=== PATIENT | male | born 1930 | race Caucasian/White ===

== ENCOUNTER 2020-08-12 18:11 | Inpatient (IN) | payer MEDICARE ==
[~2020-08-12] VITALS: Ht 165.1 cm; Wt 50.3 kg
--- NOTE | 2020-08-12 18:20 | NUR ---
LEEA, A/O X2, REFUSED TO ANSWER QUESTIONS. PER RUG SETTER VELVET NOTED WITH SYNCOPAL EPISODE. VSS AT THIS TIME, MD AT BEDSIDE, WILL CONTINUE TO MONITOR.
--- NOTE | 2020-08-12 18:45 | NUR ---
BLOOD DRAWN AND SENT TO LAB, IV ACCESS ON LFA #18, WILL CONTINUE TO MONITOR.
[2020-08-12 18:50] LABS: BASOPHILS # (AUTO) 0.1 /CMM (0.0-0.2); BASOPHILS % (AUTO) 1.2 % (0.0-2.0); EOSINOPHILS % (AUTO) 0.7 % (0.0-6.0); HEMATOCRIT 32 % (39-51); HEMOGLOBIN 10.4 g/dL (13.5-17.5); LYMPHOCYTES # (AUTO) 1.2 /CMM (0.8-4.8); LYMPHOCYTES % (AUTO) 22.7 % (20.0-44.0); MEAN CORPUSCULAR HGB CONC 33 g/dl (31.0-36.0); MEAN CORPUSCULAR VOLUME 97 fL (80-96); MONOCYTES # (AUTO) 0.4 /CMM (0.1-1.30); MONOCYTES % (AUTO) 7.3 % (2.0-12.0); NEUTROPHILS # (AUTO) 3.7 /CMM (1.8-8.9); NEUTROPHILS % (AUTO) 68.1 % (43.0-81.0); PLATELET COUNT (AUTO) 110 /CMM (150-450); RED BLOOD CELL COUNT(AUTO) 3.27 MIL/uL (4.5-6.0); WHITE BLOOD COUNT (AUTO) 5.4 K/uL (4.3-11.0)
--- NOTE | 2020-08-12 18:56 | NUR ---
- cell # [phone] Medicare # [id number] A&B
--- NOTE | 2020-08-12 18:57 | NUR ---
REFUSED XRAY, EXPLAINED BENEFITS AND RISKS BUT PATIENT MD VIKI MADE AWARE.
[2020-08-12] MEDS ORDERED: OLANZAPINE 10 MG VIAL IM ONE ×4 (18:59→21:00)
[2020-08-12 19:04] LABS: CALCIUM, SERUM 8.7 mg/dL (8.5-10.1); CARBON DIOXIDE 22 mmol/L (21-32); CHLORIDE 108 mmol/L (98-107); CREATININE 1.4 mg/dL (0.6-1.3); GLUCOSE 120 mg/dL (74-106); POTASSIUM 4.4 mmol/L (3.5-5.1); SODIUM SERUM 145 mmol/L (136-145); UREA NITROGEN, BLOOD 26 mg/dL (7-18)
--- NOTE | 2020-08-12 19:05 | NUR ---
ALL DUE MEDS GIVEN ORDERED.
[2020-08-12 19:09] LABS: ALANINE AMINOTRANSFERASE 84 U/L (12-78); ALBUMIN 3.2 g/dL (3.4-5.0); ALKALINE PHOSPHATASE 78 U/L (46-116); ASPARTATE AMINOTRANSFERASE 64 U/L (15-37); BILIRUBIN,DIRECT 0.2 mg/dL (0.0-0.2); TOTAL PROTEIN, SERUM 5.7 g/dL (6.4-8.2)
[2020-08-12] MEDS ORDERED: IV NS 0.9% 500 ML BAG IV ONE (19:30)
--- NOTE | 2020-08-12 20:02 | NUR ---
EMT AT BEDSIDE FOR EKG, PT WAS REFUSING EARLIER.
--- NOTE | 2020-08-12 20:12 | NUR ---
SPOKE WITH REGARDING PLAN OF CARE. STATED HE DOES HAVE DEMENTIA AND TENDS TO REFUSE SERVICE. ALSO STATED SHE WILL CALL TOMORROW FOR A BETTER UPDATE REGARDING PLAN OF CARE.
[2020-08-12] MEDS ORDERED: ONDANSETRON HCL/PF 4 MG/2 ML VIAL IVP PRN (21:30)
[2020-08-12] MEDS ORDERED: Z GUARD REMEDY 2 OZ OINT TP PRN (21:30)
[2020-08-12] MEDS ORDERED: HYDROCODONE/APAP 5/325MG TABLET PO PRN (21:30)
[2020-08-12] MEDS ORDERED: ACETAMINOPHEN 325 MG TABLET PO PRN (21:30)
[2020-08-12] MEDS ORDERED: MAG HYDROX/AL HYDROX/SIMETH 30 ML UDC PO PRN (21:30)
[2020-08-12] MEDS ORDERED: ZOLPIDEM TARTRATE 5 MG TABLET PO PRN (21:30)
[2020-08-12] MEDS ORDERED: IV NS 0.9% 1,000 ML IV ONE (21:30)
[2020-08-12] MEDS ORDERED: MAGNESIUM HYDROXIDE 30 ML UDC PO PRN (21:30)
--- NOTE | 2020-08-12 21:32 | NUR ---
REPORT GIVEN TO KEITH ALLEN FOR LYNDON
--- NOTE | 2020-08-12 21:49 | NUR ---
CALLED REGARDING HOME MEDICATIONS, DID NOT ANSWER.
--- NOTE | 2020-08-12 21:55 | NUR ---
CALLED , NO ANSWER.
[2020-08-12] MEDS ORDERED: ATOR10TA PO (22:12)
[2020-08-12] MEDS ORDERED: ASPI-1169 PO (22:12)
[2020-08-12] MEDS ORDERED: METF-440 PO (22:12)
--- NOTE | 2020-08-12 22:12 | NUR ---
SPOKE TO , UPDATED MEDICATIONS.
--- NOTE | 2020-08-12 22:30 | NUR ---
VEHICLE BODY MAKERPASTORAL COUNSELOR NOTE: RECEIVED PATIENT FROM ER VIA GURNEY ON STABLE CONDITION, A/OX2- CC OF SYNCOPE AND DIZZINESS WITH LFA IV LINE #18 ON 0.9 NSS @100ML /HR INFUSING WELL, PATIENT APPEARS CALM AND VERBALLY RESPONSIVE TO QUESTION, ON ROOM AIR NO SOB WAS OBSERVED, SKIN ASSESMENT DONE, INVENTORY DONE, BED WAS PLACE IN LOW POSITION, CALL LIGHTS WITHIN REACH, ORIENTED TO ROOM AND ADVISE TO USE THE CALL LIGHTS WHEN NEEDED ASSISTANCE, PATIENT ON TELE MONITORING WITH READING OF A FIB WITH HR-76-77, ALL NEEDS MET, KEPT CLEAN AND DRY, WILL CONTINUE TO MONITOR.
[2020-08-12 23:37] VITALS: BP 133/71
[2020-08-13 00:26] VITALS: BP 155/82
--- NOTE | 2020-08-13 00:40 | NUR ---
RT NOTE PT REFUSED EKG AT THIS TIME. NO DISTRESS NOTED. RN AWARE.
--- NOTE | 2020-08-13 00:49 | NUR ---
RN NOTES: PATIENT READING WAS SHIFITNG FROM AFIB TO SINUS ARRHYTHMIA, ORDER EKG BUT PATIENT REFUSED,PATIENT APPEARS CALM WILL CONTINUE TO MONITOR AND TRY AGAIN IN THE AM
[2020-08-13 04:58] VITALS: BP 154/78
[2020-08-13 05:58] LABS: BASOPHILS % (AUTO) 0.4 % (0.0-2.0); EOSINOPHILS % (AUTO) 0.6 % (0.0-6.0); HEMATOCRIT 33 % (39-51); HEMOGLOBIN 10.9 g/dL (13.5-17.5); LYMPHOCYTES # (AUTO) 1.5 /CMM (0.8-4.8); LYMPHOCYTES % (AUTO) 18.2 % (20.0-44.0); MEAN CORPUSCULAR HGB CONC 33 g/dl (31.0-36.0); MEAN CORPUSCULAR VOLUME 97 fL (80-96); MONOCYTES # (AUTO) 0.5 /CMM (0.1-1.30); MONOCYTES % (AUTO) 6.7 % (2.0-12.0); NEUTROPHILS % (AUTO) 74.1 % (43.0-81.0); PLATELET COUNT (AUTO) 141 /CMM (150-450); WHITE BLOOD COUNT (AUTO) 8.1 K/uL (4.3-11.0)
[2020-08-13 06:33] LABS: CALCIUM, SERUM 8.4 mg/dL (8.5-10.1); CREATININE 1.2 mg/dL (0.6-1.3); MAGNESIUM 1.3 mg/dL (1.8-2.4); PHOSPHORUS 3.3 mg/dL (2.5-4.9); POTASSIUM 4.1 mmol/L (3.5-5.1)
--- NOTE | 2020-08-13 06:36 | NUR ---
ASSOCIATE BROKER CLOSING NOTES: RECEIVED PATIENT SLEEP IN BED COMFORTABLY, BED IN LOW POSITION, CALL LIGHTS WITHIN REACH, NO COMPLAIN OF PAIN AND DISCOMFORT AT THIS TIME WITH IV LINE ON KB #18 WITH 100ML/HR ONE TIME INFUSING WELL.PATIENT ON CARDIAC MONITORING READING FROM JUNCTIONAL RHYTHM TO A FIB TO SINUS ARRHYTHMIA MOST RECENT TELE READING IS JUNCTIONAL ARRYHTMIA HR -[address] BECKETT WITH ORDER TO MONITOR. PATIENT IS FALL RISK, ON CONTINUOUS MONITORING, ALL NEEDS MET, KEPT CLEAN AND DRY, ENDORSE TO INCOMING SHIFT.
--- NOTE | 2020-08-13 07:53 | NUR ---
TELE/RN OPENING NOTES: RECEIVED PATIENT IN BED ALERT AND ORIENTED X1-2. ABLE TO MAKE NEEDS KNOWN. ON TELE MONITOR. NO DISTRESS NOTED AT THIS TIME. ON ROOM AIR. IV LINE ON KB #18 WITH 100ML/HR ONE TIME INFUSING WELL. PATIENT ON CARDIAC MONITORING READING FROM JUNCTIONAL RHYTHM TO A FIB TO SINUS ARRHYTHMIA MOST RECENT EKG RESULT AT 5AM IS JUNCTIONAL ARRYHTMIA HR -54 RESULT GIVEN BY PREVIOUS NURSE TO DR BECKETT WITH ORDER TO CONTINUE TO MONITOR. PATIENT IS A FALL RISK, ON CONTINUOUS MONITORING. SAFETY PRECAUTIONS IN PLACE. BED LOCKED ON LOWEST POSITION, SIDE RAILS UPX3, BED ALARM ON AND CALL LIGHT WITHIN REACH. WILL CONTINUE TO MONITOR PATIENT.
[2020-08-13] MEDS ORDERED: IV NS 0.9% 1,000 ML IV PRN (09:00)
[2020-08-13] MEDS: Magnesium 1GM/D5W 100ML PREMIX 100 ML IV SCH ×2 (09:35→11:02)
[2020-08-13 09:44] LABS: THYROID STIMULATING HORMONE 0.91 uIU/mL (0.358-3.74)
--- NOTE | 2020-08-13 15:30 | NUR ---
PATIENT IS VERY AGITATED, CONFUSED. PULLED OUT HIS IV, TOOK OFF HIS CLOTHING AND HAD BM ALL OVER THE BED AND THE FLOOR. SERGEANT OF CORRECTIONS SOFIA SHOWERED PATIENT AND CLEANED THE BED AND FLOOR. ATTEMPTED TO ESTABLISH AN IV ACCESS X3 BUT UNABLE AND PATIENT REFUSED TO DO IT. WE WILL TRY AGAIN. REPORTED INCIDENT TO DR. ROD AND CALLED AND NOTIFIED THE PATIENT'S ALLEN. WILL CONTINUE TO MONITOR.
[2020-08-13] MEDS: ENSURE ENLIVE CHOC 237 ML CAN PO SCH (16:04)
--- NOTE | 2020-08-13 18:46 | NUR ---
TELE/RN NOTES REPORTED TO DR. ROD THAT PATIENT HAS A HOME MEDS OF METFORMIN 500MG PO BID AND BLOOD SUGAR TESTING TWICE A DAY. DR. MEDLEY HELD METFORMIN THIS AM, BUT PER DR. ROD, OKAY TO START METFORMIN IF CREATININE IS LESS THAN 1.3. RECENT CREATININE IS 1.2. OKAY TO START METFORMIN PO.
[2020-08-13] MEDS: BLOOD SUGAR DIAGNOSTIC 1 EACH STRIP IN SCH ×2 (19:41→22:00)
--- NOTE | 2020-08-13 19:53 | NUR ---
COFFEE WEIGHER OPENING NOTE: RECEIVED PATIENT SLEEP IN BED COMFORTABLY, AROUSABLE TO STIMULI, NO COMPLAIN OF PAIN AND DISCOMFORT AT THIS TIME, BED IN LOW POSITION, CALL LIGHTS WITHIN REACH, PATIENT IS A/OX1 HAS A COMBATIVE EPISODE, WITH 1:1 SITTER, ON MONITORING FOR RISK FOR FALL DUE TO EPISODE OF SYNCOPE, ON TELE MONITORING WITH READING OF NORMAL SINUS PAC HR-62, ALL NEEDS MET, ROHITH CONTINUE TO MONITOR.
--- NOTE | 2020-08-13 19:56 | NUR ---
TELE/RN CLOSING NOTES PATIENT IN BED, ASLEEP BUT EASILY AROUSABLE, ORIENTED X1. NO DISTRESS NOTED.ON ROOM AIR. CURRENTLY HAVE A SITTER DUE TO AGITATION EPISODES. SAFETY PRECAUTIONS IN PLACE. BED ON LOWEST LOCKED POSITION, SIDE RAILS UP X2, CALL LIGHT WITHIN REACH. WILL ENDORSE PATIENT FOR CONTINUITY OF CARE.
--- NOTE | 2020-08-13 20:10 | NUR ---
RN NOTE: PATIENT WAS AGITATED, COMBATIVE AND WALKING ALONG THE HALLWAY, REDIRECTION WAS DONE SEVERAL TIME DUE TO AGGRESSIVE BEHAVIOR, PATIENT WAS TRANSFERRRED TO 311-1 DUE TO COMPLAIN FROM PT. 310-1 , V/S ARE NOT TAKEN DUE TO REFUSAL EXPLAIN RISK AND BENEFITS BUT PATIENT REFUSED.
--- NOTE | 2020-08-13 23:30 | NUR ---
RN NOTES: PATIENT IS UNABLE TO SLEEP, AGITATED, BECOMNG COMBATIVE INSPITE OF HAVING 1:1 SITTER AND ROOM CHANGE, AMBIEN GIVEN 5MG ,
[2020-08-14 04:00] VITALS: BP_SYST 101; BP_SYST 103; BP_DIAS 50; BP_DIAS 56
[2020-08-14 05:46] VITALS: BP 101/50
--- NOTE | 2020-08-14 06:25 | NUR ---
FISH HATCHERY INSPECTOR CLOSING NOTES PATIENT IN BED, ASLEEP, EASILY AWAKEN BY VERBAL AND TACTILE STIMULI. NO DISTRESS NOTED. ON ROOM AIR. CURRENTLY HAVE A SITTER DUE TO AGITATION EPISODES. ON TELE MONITOR, SINUS RHYTHM, HR ON 60'S. SAFETY PRECAUTIONS IN PLACE. BED ON LOWEST LOCKED POSITION, SIDE RAILS UP X2, CALL LIGHT WITHIN REACH. REFUSED IV REINSERTION, AWARE. ENDORSED PATIENT TO MORNING NURSE FOR CONTINUITY OF CARE.
[2020-08-14 06:27] LABS: BASOPHILS % (AUTO) 0.5 % (0.0-2.0); EOSINOPHILS % (AUTO) 1.1 % (0.0-6.0); HEMATOCRIT 31 % (39-51); HEMOGLOBIN 10.3 g/dL (13.5-17.5); LYMPHOCYTES # (AUTO) 1.9 /CMM (0.8-4.8); MEAN CORPUSCULAR HGB CONC 33 g/dl (31.0-36.0); MEAN CORPUSCULAR VOLUME 97 fL (80-96); MONOCYTES # (AUTO) 0.5 /CMM (0.1-1.30); MONOCYTES % (AUTO) 8.2 % (2.0-12.0); NEUTROPHILS # (AUTO) 3.8 /CMM (1.8-8.9); NEUTROPHILS % (AUTO) 60.2 % (43.0-81.0); PLATELET COUNT (AUTO) 142 /CMM (150-450); RED BLOOD CELL COUNT(AUTO) 3.18 MIL/uL (4.5-6.0); WHITE BLOOD COUNT (AUTO) 6.3 K/uL (4.3-11.0)
[2020-08-14 06:30] LABS: ALBUMIN 3.2 g/dL (3.4-5.0); BILIRUBIN,TOTAL 0.8 mg/dL (0.2-1.0); CALCIUM, SERUM 8.7 mg/dL (8.5-10.1); CREATININE 1.1 mg/dL (0.6-1.3); MAGNESIUM 1.6 mg/dL (1.8-2.4); PHOSPHORUS 3.7 mg/dL (2.5-4.9); POTASSIUM 4.8 mmol/L (3.5-5.1); TOTAL PROTEIN, SERUM 5.7 g/dL (6.4-8.2)
--- NOTE | 2020-08-14 07:32 | NUR ---
RECEIVED PATIENT AWAKE, SITTING ON THE CHAIR. ALERT X1, VERY CONFUSED AND WANTING TO LEAVE ROOM. NO SOB NOTED. NOT SHOWING S/S OF PAIN OR DISCOMFORTS. SITTER AT B[facility]IDE [facility]. RN CALLED AND LEFT A VOICEMAIL TO REPORT PATIENT'S BEHAVIOR. PATIENT STILL REFUSING IV ACCESS AT THIS TIME. WILL NOTIFY MD. WILL CONTINUE TO MONITOR PATIENT.
[2020-08-14] MEDS: Magnesium 1GM/D5W 100ML PREMIX 100 ML IV SCH ×2 (09:00→10:00)
[2020-08-14] MEDS: METFORMIN 500 MG TABLET PO SCH ×2 (09:10→10:02)
[2020-08-14] MEDS: ENSURE ENLIVE CHOC 237 ML CAN PO SCH (09:11)
--- NOTE | 2020-08-14 10:03 | NUR ---
PATIENT REFUSED METFORMIN PO, REFUSED BLOOD SUGAR CHECK AND REFUSED IV ACCESS. NOTIFIED DR. ROD. CALLED AND NOTIFIED ALLEN ON THE PHONE. PATIENT REMAINS UNCOOPERATIVE AND VERBALLY ABUSIVE. PSYCH CONSULT ORDERED. WILL CONTINUE TO MONITOR.
[2020-08-14] MEDS ORDERED: IV NS 0.45% 500 ML IV ONE (12:00)
--- NOTE | 2020-08-14 16:15 | NUR ---
TELE/SHIATSU THERAPIST NOTES PATIENT ALERT AND ORIENTED X1, STABLE ON ROOM AIR. MEDICALLY STABLE AND DR. ROD ORDERED FOR DISCHARGE. CALLED ALLEN AND SPOKE REGARDING DISCHARGE INSTRUCTIONS, UNDERSTOOD. PATIENT GOT PICKED UP BY THE SON KRISTIN. DISCHARGE INSTRUCTIONS ALSO GIVEN TO KRISTIN AND WAS ABLE TO VERBALIZED UNDERSTANDING.. BELONGINGS ACCOUNTED FOR. WHEELED PATIENT DOWN TO THE LOBBY AND LEFT VIA PRIVATE CAR WITH SON KRISTIN.
[2020-08-14] MEDS ORDERED: BLOOD SUGAR DIAGNOSTIC 1 EACH STRIP IN SCH (17:00)
== END 2020-08-14 16:15 | disposition home or self-care (01) | DRG 640 ==
LOC: ER 18:47 → TELE 21:13
PROVIDERS: ADMIT Family Medicine
DX: E86.9 Volume depletion, unspecified (principal); N17.0 Acute kidney failure with tubular necrosis; E44.1 Mild protein-calorie malnutrition; D61.818 Other pancytopenia; E86.0 Dehydration; E11.22 Type 2 diabetes mellitus with diabetic chronic kidney disease; I12.9 Hypertensive chronic kidney disease with stage 1 through stage 4 chronic kidney disease, or unspecified chronic kidney disease; N18.9 Chronic kidney disease, unspecified; D69.6 Thrombocytopenia, unspecified; Z20.822 Contact with and (suspected) exposure to COVID-19; G30.9 Alzheimer's disease, unspecified; F02.80 Dementia in other diseases classified elsewhere, unspecified severity, without behavioral disturbance, psychotic disturbance, mood disturbance, and anxiety; E78.5 Hyperlipidemia, unspecified; E78.00 Pure hypercholesterolemia, unspecified; Z88.1 Allergy status to other antibiotic agents; Z88.0 Allergy status to penicillin; Z88.2 Allergy status to sulfonamides; D63.8 Anemia in other chronic diseases classified elsewhere; R74.01 Elevation of levels of liver transaminase levels; E88.09 Other disorders of plasma-protein metabolism, not elsewhere classified; E11.65 Type 2 diabetes mellitus with hyperglycemia; D53.9 Nutritional anemia, unspecified; E83.42 Hypomagnesemia; E87.2 Acidosis; M48.02 Spinal stenosis, cervical region; R29.6 Repeated falls; E11.40 Type 2 diabetes mellitus with diabetic neuropathy, unspecified; F01.50 Vascular dementia, unspecified severity, without behavioral disturbance, psychotic disturbance, mood disturbance, and anxiety
CPT/HCPCS: 36415; 70450-TC; 71045-TC; 72125-TC; 80048-TC; 80053-TC; 80061-TC; 80076-TC; 82728-TC; 82962-TC; 83540-TC; 83735-TC; 84100-TC; 84439-TC; 84443-TC; 84484-TC; 85025-TC; 85730-TC; 87081-TC; 93307-TC; 93880-TC; 97112-TC; 97116-TC; 97530-TC; C9803; G0378; J3475; J3490; J7030

== ENCOUNTER 2020-11-23 14:09 | Inpatient (IN) | payer MEDICARE ==
[~2020-11-23] VITALS: Ht 160 cm; Wt 44.0 kg
[~2020-11-23 14:09] MED LIST: ASPI-1169 PO; ATOR10TA PO; METF-440 PO
--- NOTE | 2020-11-23 14:10 | NUR ---
BIBRA 40 from home for syncopal episode, HG=689PU/DL HOUSE MOTHER, skin is cold with a rectal temp of 93.7, Resp is even and unlabored with no apparent distress noted. Placed on air sampling and monitoring, hospital gown and warm blanket, Dr Rodas at BS for eval.
[2020-11-23] MEDS ORDERED: IV NS 0.9% 1,000 ML BAG IV ONE (14:30)
--- NOTE | 2020-11-23 14:39 | NUR ---
CXR at BS
--- NOTE | 2020-11-23 14:58 | NUR ---
URINE COLLECTED AND SENT TO THE LAB
[2020-11-23] MEDS ORDERED: MEMA10TA PO (15:03)
[2020-11-23] MEDS ORDERED: DORZ10DR11 EACHEYE (15:03)
[2020-11-23] MEDS ORDERED: LATA2.5D15 EACHEYE (15:03)
[2020-11-23 15:14] LABS: BASOPHILS % (AUTO) 0.5 % (0.0-2.0); EOSINOPHILS % (AUTO) 0.7 % (0.0-6.0); HEMATOCRIT 40 % (39-51); LYMPHOCYTES # (AUTO) 2.4 K/uL (0.8-4.8); LYMPHOCYTES % (AUTO) 39.6 % (20.0-44.0); MEAN CORPUSCULAR HGB CONC 33 g/dl (31.0-36.0); MEAN CORPUSCULAR VOLUME 99 fL (80-96); MONOCYTES # (AUTO) 0.5 K/uL (0.1-1.30); MONOCYTES % (AUTO) 7.5 % (2.0-12.0); NEUTROPHILS # (AUTO) 3.2 K/uL (1.8-8.9); NEUTROPHILS % (AUTO) 51.7 % (43.0-81.0); PLATELET COUNT (AUTO) 170 K/uL (150-450); WHITE BLOOD COUNT (AUTO) 6.2 K/uL (4.3-11.0)
[2020-11-23 15:33] LABS: ALANINE AMINOTRANSFERASE 141 U/L (12-78); ALBUMIN 3.4 g/dL (3.4-5.0); ALKALINE PHOSPHATASE 102 U/L (46-116); ASPARTATE AMINOTRANSFERASE 96 U/L (15-37); BILIRUBIN,DIRECT 0.2 mg/dL (0.0-0.2); BILIRUBIN,TOTAL 0.8 mg/dL (0.2-1.0); CALCIUM, SERUM 8.5 mg/dL (8.5-10.1); CARBON DIOXIDE 28 mmol/L (21-32); CHLORIDE 100 mmol/L (98-107); CREATININE 1.2 mg/dL (0.6-1.3); GLUCOSE 125 mg/dL (74-106); POTASSIUM 4.4 mmol/L (3.5-5.1); SODIUM SERUM 139 mmol/L (136-145); TOTAL PROTEIN, SERUM 6.4 g/dL (6.4-8.2); UREA NITROGEN, BLOOD 21 mg/dL (7-18)
[2020-11-23 15:54] LABS: BILIRUBIN,URINE NEGATIVE (NEGATIVE); COLOR,URINE YELLOW (YELLOW); LEUKOCYTE ESTERASE ,URINE NEGATIVE (NEGATIVE); NITRITE, URINE NEGATIVE (NEGATIVE); PH,URINE 5.5 (5.0-8.0); PROTEIN,URINE NEGATIVE (NEGATIVE); UGLUCOSE NEGATIVE (NEGATIVE); UROBILINOGEN,URINE 0.2 EU/dL (0.2)
[2020-11-23 16:04] LABS: BACTERIA,URINE 1+ /HPF (None Seen); HYALINE CASTS, URINE Few /LPF (None Seen); MUCUS,URINE Few /LPF (None Seen); WBC,URINE 0-2 /HPF (0-3)
[2020-11-23] MEDS ORDERED: MAGNESIUM HYDROXIDE 30 ML UDC PO PRN (16:30)
[2020-11-23] MEDS ORDERED: MAG HYDROX/AL HYDROX/SIMETH 30 ML UDC PO PRN (16:30)
[2020-11-23] MEDS ORDERED: ACETAMINOPHEN 325 MG TABLET PO PRN (16:30)
[2020-11-23] MEDS ORDERED: LEVOFLOXACIN 750 MG /D5W 150ML 150 ML IV ONE ×2 (16:30→16:46)
[2020-11-23] MEDS ORDERED: IV 1/2NS 1000 ML 1,000 ML IV PRN (16:30)
[2020-11-23] MEDS ORDERED: IV NS 0.9% 500 ML BAG IV ONE (16:30)
[2020-11-23] MEDS ORDERED: Z GUARD REMEDY 2 OZ OINT TP PRN (16:30)
[2020-11-23] MEDS ORDERED: ZOLPIDEM TARTRATE 5 MG TABLET PO PRN (16:30)
[2020-11-23] MEDS ORDERED: ONDANSETRON HCL/PF 4 MG/2 ML VIAL IVP PRN (16:30)
[2020-11-23] MEDS ORDERED: HYDROCODONE/APAP 5/325MG TABLET PO PRN (16:30)
--- NOTE | 2020-11-23 18:34 | NUR ---
room 325-1
[2020-11-23] MEDS ORDERED: VANCOMYCIN 0.75 GM in IV D5W 250 ML IV SCH (19:00)
--- NOTE | 2020-11-23 19:29 | NUR ---
Report given nurse Anahi.
[2020-11-23 19:30] VITALS: BP 115/57
--- NOTE | 2020-11-23 19:44 | NUR ---
The patient is transfered to [facility] in stable condition and per ACLS policy.
--- NOTE | 2020-11-23 19:45 | NUR ---
RN OPENING NOTE PATIENT TRANSFERRED VIA ACLS PROTOCOL IN RM 325-1, PATIENT'S BREATHING EVEN AND UNLABORED. PATIENT HAS A RAC 18 G, PATENT AND INTACT. PATIENT HAS STIFFNESS ON HIS UPPER EXTREMITITES. SKIN ISSUES NOTED AND DOCUMENTED. PATIENT IS A/O X 2, VERY FORGETFUL AND MILDLY CONFUSED. PATIENT'S TELE MONITOR READS SR 82 BPM WITH PAC. PATIENT CAME WITH A BEAR HUGGER, PATIENT'S TEMP UPON ADMISSION IS 97.5. WILL MONITOR TEMP. SAFETY MEASURES IN PLACE: BED LOCKED AND IN LOWEST POSITION, CALL LIGHT WITHIN REACH, SIDE RAILS UP, BED ALARM ON. WILL MONITOR PATIENT CLOSELY.
[2020-11-23] MEDS: MEMANTINE HCL 5 MG TABLET PO SCH (20:30)
[2020-11-23] MEDS: TIMOLOL MAL/DORZOLAM HCL OPHTH 10 ML BOTTLE EACHEYE SCH (20:30)
[2020-11-23] MEDS: METFORMIN 500 MG TABLET PO SCH (20:30)
[2020-11-23] MEDS: ENOXAPARIN SODIUM 30 MG/0.3 ML DISP.SYRIN SQ SCH (20:55)
[2020-11-23] MEDS: LATANOPROST EYE DROP 0.005% 2.5 ML BOTTLE EACHEYE SCH (21:41)
[2020-11-23] MEDS: ATORVASTATIN 10 MG TABLET PO SCH (21:41)
--- NOTE | 2020-11-23 22:33 | NUR ---
RN NOTE PATIENT COMPLAINING OF 10/10 ARM PAIN ON RIGHT AND LEFT, NORCO GIVEN
[2020-11-24] VITALS: BP 160/72
[2020-11-24 04:00] VITALS: BP 122/78
[2020-11-24 06:40] LABS: BASOPHILS % (AUTO) 0.5 % (0.0-2.0); EOSINOPHILS % (AUTO) 0.2 % (0.0-6.0); HEMATOCRIT 35 % (39-51); HEMOGLOBIN 11.8 g/dL (13.5-17.5); LYMPHOCYTES # (AUTO) 1.3 K/uL (0.8-4.8); LYMPHOCYTES % (AUTO) 24.3 % (20.0-44.0); MEAN CORPUSCULAR HGB CONC 34 g/dl (31.0-36.0); MEAN CORPUSCULAR VOLUME 97 fL (80-96); MONOCYTES # (AUTO) 0.3 K/uL (0.1-1.30); NEUTROPHILS # (AUTO) 3.6 K/uL (1.8-8.9); PLATELET COUNT (AUTO) 154 K/uL (150-450); RED BLOOD CELL COUNT(AUTO) 3.63 MIL/uL (4.5-6.0); WHITE BLOOD COUNT (AUTO) 5.2 K/uL (4.3-11.0)
[2020-11-24 07:00] LABS: CALCIUM, SERUM 8.2 mg/dL (8.5-10.1); MAGNESIUM 1.5 mg/dL (1.8-2.4); PHOSPHORUS 2.8 mg/dL (2.5-4.9); POTASSIUM 4.6 mmol/L (3.5-5.1)
[2020-11-24 07:14] LABS: THYROID STIMULATING HORMONE 3.205 uIU/mL (0.358-3.74)
--- NOTE | 2020-11-24 07:15 | NUR ---
RN CLOSING NOTE PATIENT IN BED, EYES CLOSED, EASILY AROUSED. LAB CALLED IN CRITICAL LAB ON 3.2 LACTIC ACID. MD GALAN AWARE. NO NEW ORDERS. IV ACCESS PATENT AND INTACT WITH ONGOING IVF. SAFETY MEASURES MAINTAINED. ALL NEEDS MET AND ATTENDED. ALL ORDERS CARRIED OUT. WILL ENDORSE TO DAY SHIFT NURSE FOR LYNDON.
--- NOTE | 2020-11-24 07:30 | NUR ---
CHILI PEPPER GRINDER NOTES PT IN BED, AWAKE, ALERT AND VERBALLY RESPONSIVE, DENIES PAIN OR ANY DISCOMFORT, RESPIRATIONS NORMAL, CALL LIGHT WITHIN REACH, WITH EPISODES OF BEING FORGETFUL, REALITY ORIENTATION PROVIDED, IV FLUIDS INFUSING WELL, KEPT CLEAN AND DRY.
[2020-11-24 08:00] VITALS: BP 140/56
--- NOTE | 2020-11-24 08:58 | NUR ---
WOUND CARE CONSULT: PT PRESENTS WITH CACHEXIA, DRY SCAB TO TOP OF HEAD, DRY ABRASION TO RT ELBOW, ABRASION TO MIDBACK, VERY BONY SACRAL AREA AND DRY SCRATCHES TO FEET, ALL PRESENT ON ADMISSION. RECOMMENDATIONS MADEFOR WOUND CARE AND SKIN PROTECTION. DISCUSSED WITH NURSING STAFF. PT NOTED TO BE INCONTINENT OF URINE AND STOOL. DIETARY CONSULT IN PLACE. MD IN AGREEMENT WITH PLAN OF CARE. PT IS ON [facility] AIRLOSS BED.
[2020-11-24] MEDS ORDERED: IV NS 0.9% 1,000 ML IV PRN (09:00)
[2020-11-24] MEDS: PANTOPRAZOLE 40 MG TABLET.DR PO SCH (09:24)
[2020-11-24] MEDS: MEMANTINE HCL 5 MG TABLET PO SCH ×2 (09:24→16:24)
[2020-11-24] MEDS: TIMOLOL MAL/DORZOLAM HCL OPHTH 10 ML BOTTLE EACHEYE SCH ×2 (09:24→16:26)
[2020-11-24] MEDS: Magnesium 1GM/D5W 100ML PREMIX 100 ML IV SCH ×2 (09:24→10:44)
[2020-11-24] MEDS: METFORMIN 500 MG TABLET PO SCH ×2 (09:24→16:24)
[2020-11-24] MEDS: ASPIRIN 81 MG TAB.CHEW PO SCH (09:24)
[2020-11-24] MEDS: ENSURE ENLIVE CHOC 237 ML CAN PO SCH ×2 (13:01→16:25)
[2020-11-24 16:00] VITALS: BP 124/63
[2020-11-24] MEDS: ENOXAPARIN SODIUM 30 MG/0.3 ML DISP.SYRIN SQ SCH (17:13)
--- NOTE | 2020-11-24 18:29 | NUR ---
FOREIGN LANGUAGES PROFESSOR NOTES PT IN BED, AWAKE, ALERT, FORGETFUL AT TIMES, COMPLIANT WITH MEDS AND INTERVENTIONS, IV FLUIDS INFUSING WELL, TOLERATES CURRENT DIET, SEEN BY DR. PAL TODAY, WOUND CARE CONSULT DONE, KEPT PT CLEAN AND DRY, ASSISTED WITH NEEDS.
--- NOTE | 2020-11-24 19:30 | NUR ---
BED AND BREAKFAST OPERATOR OPENING NOTE RECEIVED PT AWAKE IN BED. A/O X2, FORGETFUL AT TIMES. PT IS STABLE ON ROOM AIR W/ NO SOB OR S/S OF RESPIRATORY DISTRESS NOTED. PT ON EXTERNAL DIESEL LOCOMOTIVE ENGINEER READING SR WITH PAC'S, PVC'S AT 66 BPM. PT HAS NO S/O PAIN SUCH FACIAL GRIMACING AT THIS TIME. IV ACCESS IN RAC #18 INFUSING IVF@100ML/HR, INTACT AND PATENT. SAFETY PRECAUTIONS MAINTAINED. BED IN LOWEST LOCKED POSITION, HOB ELEVATED, SIDE RAILS UP X2. CALL LIGHT AND TABLE WITHIN REACH. WILL CONTINUE WITH PLAN OF CARE.
[2020-11-24 20:31] VITALS: BP 133/56
[2020-11-24] MEDS: ATORVASTATIN 10 MG TABLET PO SCH (21:08)
[2020-11-24] MEDS: LATANOPROST EYE DROP 0.005% 2.5 ML BOTTLE EACHEYE SCH (21:16)
--- NOTE | 2020-11-24 23:05 | NUR ---
RN NOTE PT C/O NOT BEING ABLE TO SLEEP AND REQUESTED MEDICATION. PER PT REQUEST, ADMINISTERED AMBIEN 5MG PO HS PRN FOR SLEEP. WILL REASSESS PT IN 1 HR AND CONTINUE TO MONITOR PT.
[2020-11-25 00:02] VITALS: BP 141/83
--- NOTE | 2020-11-25 00:05 | NUR ---
RN NOTE REASSESSED PT AND PT IS STILL AWAKE. PT APPEARS CONFUSED AND IS YELLING AT STAFF. REORIENTED PT AND WILL CONTINUE TO MONITOR PT.
--- NOTE | 2020-11-25 00:22 | NUR ---
RN NOTE PT APPEARS CONFUSED AND IS YELLING AT STAFF. PT MADE NUMEROUS ATTEMPTS TO GET OUT OF BED, IS UNMANAGEABLE, AND REMOVED IV ACCESS. INFORMED BA AND RECEIVED ORDER TO ADMINISTER ZYPREXA 5MG IM X 1. ORDER READ BACK, ENTERED, AND CARRIED OUT. WILL CONTINUE TO MONITOR PT CLOSELY.
[2020-11-25] MEDS ORDERED: OLANZAPINE 10 MG VIAL IM ONE ×2 (00:30→00:32)
[2020-11-25 03:38] VITALS: BP 137/86
--- NOTE | 2020-11-25 06:05 | NUR ---
RN NOTE PT REFUSED IV INSERTION X2. EDUCATED PT ON RISKS AND BENEFITS OF REFUSING IV ACCESS. PT CONTINUES TO REFUSE IV INSERTION. WILL CONTINUE TO MONITOR PT CLOSELY.
[2020-11-25 06:29] LABS: BASOPHILS % (AUTO) 0.5 % (0.0-2.0); EOSINOPHILS % (AUTO) 0.4 % (0.0-6.0); HEMATOCRIT 40 % (39-51); HEMOGLOBIN 13.3 g/dL (13.5-17.5); LYMPHOCYTES # (AUTO) 1.5 K/uL (0.8-4.8); LYMPHOCYTES % (AUTO) 27.4 % (20.0-44.0); MEAN CORPUSCULAR HGB CONC 34 g/dl (31.0-36.0); MEAN CORPUSCULAR VOLUME 98 fL (80-96); MONOCYTES # (AUTO) 0.4 K/uL (0.1-1.30); MONOCYTES % (AUTO) 6.5 % (2.0-12.0); NEUTROPHILS # (AUTO) 3.6 K/uL (1.8-8.9); NEUTROPHILS % (AUTO) 65.2 % (43.0-81.0); PLATELET COUNT (AUTO) 180 K/uL (150-450); RED BLOOD CELL COUNT(AUTO) 4.05 MIL/uL (4.5-6.0); WHITE BLOOD COUNT (AUTO) 5.4 K/uL (4.3-11.0)
[2020-11-25 06:43] LABS: CALCIUM, SERUM 8.6 mg/dL (8.5-10.1); PHOSPHORUS 3.6 mg/dL (2.5-4.9); POTASSIUM 3.8 mmol/L (3.5-5.1)
--- NOTE | 2020-11-25 07:00 | NUR ---
JAVA MOBILE DEVELOPER CLOSING NOTE PT IS AWAKE IN BED. A/O X2, FORGETFUL AT TIMES. PT IS STABLE ON ROOM AIR W/ NO SOB OR S/S OF RESPIRATORY DISTRESS NOTED. PT ON EXTERNAL FRONT COUNTER CLERK READING SR WITH PAC'S, PVC'S AT 71 BPM. PT HAS NO S/O PAIN SUCH FACIAL GRIMACING AT THIS TIME. PT REFUSES IV INSERTION AT THIS TIME. ALL NEEDS HAVE BEEN MET. SAFETY PRECAUTIONS MAINTAINED AT ALL TIMES. BED IN LOWEST LOCKED POSITION, HOB ELEVATED, SIDE RAILS UP X2. CALL LIGHT AND TABLE WITHIN REACH. WILL ENDORSE TO ONCOMING NURSE FOR LYNDON.
--- NOTE | 2020-11-25 07:40 | NUR ---
RN OPENING NOTES Patient seen comfortably lying in bed, respirations even and unlabored, no SOB, no apparent distress noted, no grimacing noted. Call light left within reach, safety precautions in place, brakes locked, side rails up X 2, will monitor closely for any changes
[2020-11-25 08:00] VITALS: BP 146/78
[2020-11-25] MEDS: ENOXAPARIN SODIUM 30 MG/0.3 ML DISP.SYRIN SQ SCH (09:51)
[2020-11-25] MEDS: ENSURE ENLIVE CHOC 237 ML CAN PO SCH ×2 (09:52→16:59)
[2020-11-25] MEDS: METFORMIN 500 MG TABLET PO SCH ×2 (09:52→16:59)
[2020-11-25] MEDS: ASPIRIN 81 MG TAB.CHEW PO SCH (09:52)
[2020-11-25] MEDS: MEMANTINE HCL 5 MG TABLET PO SCH ×2 (09:52→16:59)
[2020-11-25] MEDS: PANTOPRAZOLE 40 MG TABLET.DR PO SCH (09:55)
[2020-11-25] MEDS: TIMOLOL MAL/DORZOLAM HCL OPHTH 10 ML BOTTLE EACHEYE SCH ×2 (10:03→17:17)
[2020-11-25] MEDS ORDERED: OLANZAPINE ZYDIS 5 MG TAB.RAPDIS PO PRN (11:30)
--- NOTE | 2020-11-25 11:50 | NUR ---
SS consult SS requested for plan of care. Pt is a 89-year-old, male. SW met with pt at his bedside in the med-surg unit. Pt presented alert and oriented x2, place and time. Pt was not aware of the situation that brought him into the hospital. Pt presented with an anxious mood and flat affect. Pt appeared well-groomed and appropriately dressed. Pt stated that he currently lives with his spouse, Rani Ho, , at their private residence located at [address] [place] [address]; [phone]. Pt reported that he is ambulatory and independent with his ADL's. Pt stated that he receives SSI as a source of income. Pt currently does not have access to a caregiver and receives support from his spouse. Pt denied hx of substance abuse. Pt denied hx of mental illness. Pt denied SI/HI. SW offered the pt senior resources. Pt accepted the resources and thanked SW. CMG Silvia notified SW that CMG contacted pt's spouse to discuss d/c plans. Pt's spouse agreed to SNF placement. PLAN: CMG Silvia to F/U with discharge plan to SNF. No further SS intervention at this time, however, SW will remain available as needed. RESOURCES: ABUSE PREVENTION: Elder Abuse Hotline (19/09) Adult Protective Services Hotline Long-Term Care [facility] Region Area On Aging (Hotline) ADULT DAY HEALTH CARE CARE CENTERS: Private pay or Medi-alexander funded adult day care [place] [facility] , [facility] Services , [facility] , [facility] Adult Day Health Care , [facility] Adult [facility] Health Care , [facility] , [facility] , [facility] , [facility] HEALTH ASSOCIATIONS: AARP www.aarp.org ALS Association (ask for Allie) www.als.org French Diabetes Association www.diabetes.org French Heart Association www.heart.org French Lung Association www.lungusa.org French Parkinson Disease Association www.apdaparkinson.org French [place] , www.redcross.org Arthritis Foundation www.arthritis.org Crohns & Colitis Foundation of French www.ccfa.org/chapters/losangeles National Multiple Sclerosis Society www.nationalmssociety.org Myasthenia Gravis Foundation www.myasthenia-ca.org National Stroke Association www.stroke.org CONSERVATORSHIP & GUARDIANSHIP: AARP Rocio [facility] Legal Services Center for Health Care Rights [facility] Information and Referral Staffing Analyst [facility]: [facility] Bar Referral Service [facility] Legal Services Office of the Public Guardian [place] GRIEF AND BEREAVEMENT RESOURCES: [facility] [place] , [facility] THE HOPE Connection , [facility] , [place] HELP AT HOME CAREGIVER SUPPORT: In Home Support Services (Must have Medi-Alexander to be eligible) *Ask for a list of agencies that provide services to assist with care in the home. Local Senior Centers also have listings of care providers. HOME SAFETY MODIFICATIONS AND EQUIPMENT: Senior centers have additional referrals. [place] Housing and Community Investment Dept. Handyworker Program (low income) or Visit http://hcidla.[facility].org/mlo-avyvqi-uw for more information National Seating and Mobility and/or ; Forever Active www.foreverMindset Studiomed.Fracture Stay Home Safe www.Stayhomesafe.Fracture LIFE ALERT RESPONSE SYSTEM: AdVolume Services 830-835-1366 www. AdventEnna Life Alert 182-097-9341 www.Banyan Technology Life Station [phone] www.RightsFlowation.Fracture Safe Return 260-342-7766 www.alz.or/safereturn Cell Phones for Seniors www.Driverdo MEALS AND FOOD PROGRAMS: [place] Meals on Wheels [phone] [place] Meals on Wheels [phone] [facility] [phone] [place] to the Homebound [phone] [place] to the Homebound [phone] [facility] to the Homebound [phone] [facility] to the Homebound [phone] [facility] Omar Christensen [phone] [facility] [phone] ONE Generation [phone] [facility] [phone] [facility] [phone] Meals on Wheels [phone] For all ages: $6.85/ meal w side. Delivered M-F from 10 am-1pm. Application and payment is done over the phone. Frozen meals available for weekends. Emergency Food [facility] [phone] [facility] Managing Partner [phone] [facility] [phone] [facility] Brown bag lunches [phone] ZOHAIB [facility] [phone] MEAL/GROCERY DELIVERY PROGRAMS: Ricky Oliveira Gourmet Meals [phone]- [facility] [phone]- [facility] Magic Kitchen [phone] Moms Meals [phone] (ask Hassan for Discount Select grocery stores may provide delivery. MEDICAL INSURANCE SUPPORT SERVICES: Center for Health Care Rights [phone] Health Insurance Counseling/Advocacy Programs (HICAP)-Must have Medicare. Offers counseling for Medi-Alexander eligibility [phone] Department of Public Managing Partner [phone] www.[facility].ca.gov Medicare [phone] www.socialsecurity.org Social Security [phone] SENIOR ACTIVITY PROGRAMS: *Contact a local senior center, adult school, recreation facility or community college for education, fitness, recreation, and social programs. Aquatic Therapy and Adapted Exercise programs through [facility] [phone] [facility] at [facility] [phone] www.[facility]/encore U- Senior Friends [phone] [place] Senior Programs [phone] www.oasisnet.org Suddenly 65 www.vkvaheqa02.com SENIOR CENTERS: [facility] [phone] [facility] [phone] [facility] [phone] [facility] [phone] [facility] [phone] [facility] [phone] [facility] [phone] [facility] [phone] One Generation, [facility] [phone] [facility] [phone] [phone] [facility] [phone] [facility] [phone] TRANSPORTATION: Local Senior Centers may have applications for transportation programs and additional resources. ACCESS Services [phone] Transportation for seniors and disabled persons 7 days a week requiring 254 hr. advance reservation. Must apply and register for program to be eligible. MOO.COM [phone] or [phone] Transportation for seniors and persons with ADA card/metro disabled card in the [facility]. M-F only. Must register for services. ONE GENERATION [phone] Serves 65 years + in conjunction with Quality Technology Servicese program. Must be registered with both programs. A to B Transport [phone] Provides wheelchair/gurney van service. TRANSPORTATION CONTINUED: Adult Medical Transport [phone] Accepts Medi-alexander with prior authorization. Care Van [phone] Provides wheelchair Transport. [facility] Transportation [phone] Provides gurney service [facility] [phone] Gurney Transport. [facility] Transportation [phone] wheelchair & gurney transport [facility] Transportation [phone] wheelchair & gurney transport [place] Non-Emergency Transport [phone] wheelchair & gurney transport [facility] [phone] (Short Term Transportation primarily for adults with disabilities on social security income. Nominal fee may apply and a reservation is required.) [employer] [phone] or [phone] [facility] [phone] [place] [address] Referral Services [phone] For additional programs & services
[2020-11-25 16:00] VITALS: BP 111/91
[2020-11-25] MEDS ORDERED: LEVOFLOXACIN 750 MG /D5W 150ML 750 MG in PREMIX 1 EA IV SCH (16:30)
--- NOTE | 2020-11-25 18:28 | NUR ---
RN CLOSING NOTES Patient lying in bed, AO X 2, with episodes of confusion and forgetfulness, can follow commands, able to make simple needs known. No SOB, breathing even and unlabored, no grimacing at this time, remained afebrile during shift, no apparent distress noted. All medications given per MD order, tolerating well, kept clean and dry. Patient has an order for soft wrist restraint for safety, visual check rendered every 15 minutes, patient repositioned frequently, no s/s of circulation impairment noted at this time, skin warm to touch, no pallor or cyanosis noted. Patient was noted to have episodes of having unassisted transfers, bed alarm on, all needs anticipated, safety precautions in place, brakes locked, side rails up X 2, call light left within reach, will endorse to next shift for continuity of care.
--- NOTE | 2020-11-25 19:57 | NUR ---
SPORTS INSTRUCTOR OPENING NOTES RECEIVED PT IN BED, WATCHING TV. AOx2. ON RA AND TOLERATING WELL. NO SOB NOTED. NO S/SX OF RESPIRATORY DISTRESS NOTED. NO COMPLAINTS OF PAIN AT THIS TIME. IV ACCESS IN R FOREARM #24 RUNNING NS @ 100 ML/HR. NO COMPLAINTS OF PAIN AT THIS TIME. SAFETY PRECAUTIONS IN PLACE: BED IN LOWEST, LOCKED POSITION, SIDERAILS UP X2, BRAKES ON. CALL LIGHT AND TABLE WITHIN REACH. WILL CONTINUE TO MONITOR.
[2020-11-25 20:00] VITALS: BP 118/82
[2020-11-25] MEDS: ATORVASTATIN 10 MG TABLET PO SCH (21:35)
[2020-11-25] MEDS: LATANOPROST EYE DROP 0.005% 2.5 ML BOTTLE EACHEYE SCH (21:36)
--- NOTE | 2020-11-25 21:49 | NUR ---
ADMINISTERED OLANZAPINE @ 2103 PER MD ORDER FOR AGITATION. WILL CONTINUE TO MONITOR.
[2020-11-26] VITALS: BP 144/81
[2020-11-26 04:00] VITALS: BP 120/86
--- NOTE | 2020-11-26 06:29 | NUR ---
HAND STAMPER CLOSING NOTES PT IN BED, WATCHING TV. AOx2. ON RA AND TOLERATING WELL. NO SOB NOTED. NO S/SX OF RESPIRATORY DISTRESS NOTED. IV ACCESS IN R FOREARM #24 RUNNING NS @ 100 ML/HR. NO COMPLAINTS OF PAIN THROUGHOUT SHIFT. ALL NEEDS MET. PT KEPT CLEAN AND DRY. SAFETY PRECAUTIONS IN PLACE: BED IN LOWEST, LOCKED POSITION, SIDERAILS UP X2, BRAKES ON. CALL LIGHT AND TABLE WITHIN REACH. WILL ENDORSE TO ONCOMING SHIFT.
[2020-11-26 08:00] VITALS: BP 159/92
[2020-11-26] MEDS: ENSURE ENLIVE CHOC 237 ML CAN PO SCH (08:00)
--- NOTE | 2020-11-26 08:00 | NUR ---
received pt. in rm.alert and oriented x1.pt. stated he thought he was in a hotel.
[2020-11-26] MEDS: METFORMIN 500 MG TABLET PO SCH (09:00)
[2020-11-26] MEDS: TIMOLOL MAL/DORZOLAM HCL OPHTH 10 ML BOTTLE EACHEYE SCH (09:54)
[2020-11-26] MEDS: MEMANTINE HCL 5 MG TABLET PO SCH (09:54)
[2020-11-26] MEDS: PANTOPRAZOLE 40 MG TABLET.DR PO SCH (09:54)
[2020-11-26] MEDS: ASPIRIN 81 MG TAB.CHEW PO SCH (09:54)
--- NOTE | 2020-11-26 10:00 | NUR ---
received call from employment case manager.regarding disch.randall employment case manager. [facility]
[2020-11-26 12:00] VITALS: BP 149/80
--- NOTE | 2020-11-26 12:31 | NUR ---
FIGHTING NURSE WHILE RN ATTEMPTING TO GET PHOTOS.SO DC PHOTOS NOT DONE.
--- NOTE | 2020-11-26 13:35 | NUR ---
all papers together with signatures.hep lock out.bandage to site.report to drivers,report called to george at facility.taken via ambulance to [facility].
== END 2020-11-26 13:35 | DRG 64 ==
LOC: ER 14:11 → TRANSITION 18:16 → TELE 18:35
PROVIDERS: ATTEND Internal Medicine
DX: I62.02 Nontraumatic subacute subdural hemorrhage (principal); G93.41 Metabolic encephalopathy; N17.0 Acute kidney failure with tubular necrosis; E87.2 Acidosis; E44.1 Mild protein-calorie malnutrition; Z68.1 Body mass index [BMI] 19.9 or less, adult; F02.81 Dementia in other diseases classified elsewhere, unspecified severity, with behavioral disturbance; G90.8 Other disorders of autonomic nervous system; D63.8 Anemia in other chronic diseases classified elsewhere; Z20.822 Contact with and (suspected) exposure to COVID-19; D69.6 Thrombocytopenia, unspecified; E78.5 Hyperlipidemia, unspecified; I10 Essential (primary) hypertension; R74.01 Elevation of levels of liver transaminase levels; E88.09 Other disorders of plasma-protein metabolism, not elsewhere classified; T68.XXXA Hypothermia, initial encounter; G30.9 Alzheimer's disease, unspecified; Z79.84 Long term (current) use of oral hypoglycemic drugs; E83.42 Hypomagnesemia; Z79.82 Long term (current) use of aspirin; E11.40 Type 2 diabetes mellitus with diabetic neuropathy, unspecified; F29 Unspecified psychosis not due to a substance or known physiological condition
CPT/HCPCS: 36415; 70450-TC; 71045-TC; 80048-TC; 80061-TC; 80076-TC; 81001; 83605-TC; 83735-TC; 83880; 84100-TC; 84443-TC; 84484-TC; 85025-TC; 85730-TC; 87040-TC; 87081-TC; 87086-TC; 95819-TC; 97112-TC; 97116-TC; 97530-TC; A4216; A6253; C9803; G0378; J1650; J1956; J3370; J3475; J3490; J7030; J7040; J7060

== ENCOUNTER 2021-01-27 11:46 | Inpatient (IN) | payer MEDICARE ==
[~2021-01-27] VITALS: Ht 165.1 cm; Wt 40.8 kg
[~2021-01-27 11:46] MED LIST changes: -ASPI-1169 PO; +DORZ10DR11 EACHEYE; +LATA2.5D15 EACHEYE; +MEMA10TA PO
--- NOTE | 2021-01-27 11:53 | NUR ---
The patient is bibra86 frm [facility] for noted o2 desaturation. family requested ED transfer. Respiration fast and labored. Attached to the monitor.
--- NOTE | 2021-01-27 11:55 | NUR ---
PT IV LINE ESTABLISHED BLOOD DRAWN AND SENT TO LAB.
[2021-01-27] MEDS ORDERED: MEGE400O5 PO (12:06)
[2021-01-27] MEDS ORDERED: ACET-868 PO (12:06)
[2021-01-27] MEDS ORDERED: CRAN425C6 PO (12:06)
[2021-01-27] MEDS ORDERED: MAGN400O6 PO (12:06)
[2021-01-27] MEDS ORDERED: CHOL100062 PO (12:06)
[2021-01-27] MEDS ORDERED: VITA1TAB56 PO (12:06)
[2021-01-27] MEDS ORDERED: DOCU-141 PO (12:06)
[2021-01-27] MEDS ORDERED: BISA10SU11 RC (12:06)
[2021-01-27] MEDS ORDERED: ASPI-1169 PO (12:06)
--- NOTE | 2021-01-27 12:09 | NUR ---
MANAGEMENT RETAIL INTERN AT PT'S BEDSIDE
--- NOTE | 2021-01-27 12:24 | NUR ---
URINE COLLECTED AND SENT TO THE LAB
--- NOTE | 2021-01-27 12:34 | NUR ---
COVID ANTIGEN AND PCR COLLECTED AND SENT TO LAB
--- NOTE | 2021-01-27 12:38 | NUR ---
MOVE SHEET SUBMITTED & CALLED FOR MS BED.
[2021-01-27 12:51] LABS: BASOPHILS % (AUTO) 0.4 % (0.0-2.0); EOSINOPHILS % (AUTO) 0.3 % (0.0-6.0); HEMATOCRIT 39 % (39-51); HEMOGLOBIN 12.8 g/dL (13.5-17.5); LYMPHOCYTES # (AUTO) 0.4 K/uL (0.8-4.8); LYMPHOCYTES % (AUTO) 12.8 % (20.0-44.0); MEAN CORPUSCULAR HGB CONC 32 g/dl (31.0-36.0); MEAN CORPUSCULAR VOLUME 98 fL (80-96); MONOCYTES # (AUTO) 0.1 K/uL (0.1-1.30); MONOCYTES % (AUTO) 4.1 % (2.0-12.0); NEUTROPHILS # (AUTO) 2.7 K/uL (1.8-8.9); NEUTROPHILS % (AUTO) 82.4 % (43.0-81.0); PLATELET COUNT (AUTO) 297 K/uL (150-450); RED BLOOD CELL COUNT(AUTO) 4.05 MIL/uL (4.5-6.0); WHITE BLOOD COUNT (AUTO) 3.3 K/uL (4.3-11.0)
[2021-01-27 12:57] LABS: BILIRUBIN,URINE Negative (NEGATIVE); COLOR,URINE DARK YELLOW (YELLOW); LEUKOCYTE ESTERASE ,URINE Negative (NEGATIVE); NITRITE, URINE Negative (NEGATIVE); PROTEIN,URINE Trace mg/dl (NEGATIVE); UGLUCOSE Negative (NEGATIVE); UROBILINOGEN,URINE 0.2 EU/dL (0.2)
[2021-01-27 12:57] LABS: CALCIUM, SERUM 10.4 mg/dL (8.5-10.1); CARBON DIOXIDE 32 mmol/L (21-32); CHLORIDE 105 mmol/L (98-107); CREATININE 1.5 mg/dL (0.6-1.3); GLUCOSE 193 mg/dL (74-106); POTASSIUM 4.6 mmol/L (3.5-5.1); SODIUM SERUM 146 mmol/L (136-145); UREA NITROGEN, BLOOD 61 mg/dL (7-18)
[2021-01-27] MEDS ORDERED: LEVOFLOXACIN 750 MG /D5W 150ML PIGGYBACK IV ONE (13:00)
[2021-01-27] MEDS ORDERED: IV NS 0.9% 1,000 ML BAG IV ONE (13:00)
[2021-01-27 13:19] LABS: ALANINE AMINOTRANSFERASE 20 U/L (12-78); ALBUMIN 2.4 g/dL (3.4-5.0); ALKALINE PHOSPHATASE 136 U/L (46-116); ASPARTATE AMINOTRANSFERASE 17 U/L (15-37); BILIRUBIN,DIRECT 0.2 mg/dL (0.0-0.2); BILIRUBIN,TOTAL 0.8 mg/dL (0.2-1.0); TOTAL PROTEIN, SERUM 7.2 g/dL (6.4-8.2)
[2021-01-27 13:28] LABS: BACTERIA,URINE Rare /HPF (None Seen); RBC,URINE NONE SEEN /HPF (0-2); SQUAMOUS EPITHELIAL CELL,UR Rare /HPF (None Seen); WBC,URINE 0-2 /HPF (0-3)
[2021-01-27] MEDS ORDERED: LEVOFLOXACIN 750 MG /D5W 150ML 150 ML IV ONE (13:41)
[2021-01-27] MEDS ORDERED: IV NS 0.9% 1,000 ML IV PRN (14:00)
[2021-01-27] MEDS ORDERED: MORPHINE SULFATE INJ 2 MG/ML DISP.SYRIN IV PRN (14:00)
[2021-01-27] MEDS ORDERED: LORAZEPAM INJ 2 MG/ML VIAL IV PRN (14:00)
[2021-01-27] MEDS ORDERED: Z GUARD REMEDY 2 OZ OINT TP PRN (14:00)
[2021-01-27] MEDS ORDERED: ONDANSETRON HCL/PF 4 MG/2 ML VIAL IVP PRN (14:00)
[2021-01-27] MEDS ORDERED: DEXTROSE 50%-WATER 50 ML DISP.SYRIN IV PRN (14:30)
--- NOTE | 2021-01-27 16:10 | NUR ---
REPORT GIVEN TO AISHA ALLEN. PT AWAITING TRANSFER TO FLOOR.
--- NOTE | 2021-01-27 16:53 | NUR ---
THE PATIENT IS TRANSFERED TO [facility] PER ACLS POLICY.
[2021-01-27] MEDS ORDERED: ALBUTEROL SULFATE INH 18 GM HFA.AER.AD IH PRN ×2 (17:00)
--- NOTE | 2021-01-27 17:10 | NUR ---
WORK DISTRIBUTOR NOTES, RECEIVED 89 YO MALE ADMITTED FROM ER DEPARTMENT VIA STRETCHER ACCOMPANIED BY 2 NURSES, PATIENT AWAKE A/O TO SELF, ON NRM AT 15LPM WITH OPTIMAL O2 SATURATION LEVEL >98%, WITH ADMITTING DX SEPSIS SECONDARY TO PNA, LACTIC ACIDOSIS, PATIENT CODE STATUS DNR/DNI, AFEBRILE, WITH IV LINE IN RIGHT AC, ADMITTED TELE ATTACH TO TELE MONITOR AND SHOWED NSR WITH HR IN 90S, WILL CONTINUE TO MONITOR CLOSELY, AND WILL ENDORSE CONTINUITY OF CARE TO ONCOMING NURSE.
[2021-01-27] MEDS: ENOXAPARIN SODIUM 30 MG/0.3 ML DISP.SYRIN SQ SCH (18:11)
[2021-01-27] MEDS: BLOOD SUGAR DIAGNOSTIC 1 EACH STRIP IN SCH (18:22)
[2021-01-27] MEDS: INSULIN REGULAR, HUMAN 100 UNIT/ML 3 ML VIAL SQ PRN (18:22)
--- NOTE | 2021-01-27 20:27 | NUR ---
WINK CUTTER OPERATOR OPENING NOTES: RECEIVED PATIENT FROM DAY SHIFT, PATIENT ASLEEP IN BED, A/O X2, R AC #18 PATENT AND INTACT, NPO, ON NRB 15L, NSR, BED AT LOWEST POSITION, SIDE RAILS UP X2, BRAKES LOCKED AND IN PLACE, CALL LIGHT WITHIN REACH, NO SIGNS OF SOB, NO DISTRESS, WILL CONTINUE TO MONITOR AND ADMINISTER NURSING INTERVENTIONS NECESSARY.
--- NOTE | 2021-01-27 20:48 | NUR ---
WOOL FLEECE SORTER NOTES: CHANGED 0.9 NS TO D5W 0.[address] BA. 2039
[2021-01-27] MEDS: IV D5/0.45 NACL 1,000 ML IV PRN (20:50)
[2021-01-28] MEDS: BLOOD SUGAR DIAGNOSTIC 1 EACH STRIP IN SCH ×4 (00:13→18:31)
--- NOTE | 2021-01-28 00:16 | NUR ---
WOODWIND INSTRUMENTS INSPECTOR NOTES: 0000 - BS 82
--- NOTE | 2021-01-28 05:29 | NUR ---
BOAT ASSEMBLER NOTES: 599 - BS 117 - INSULIN HELD DUE TO NPO
--- NOTE | 2021-01-28 06:00 | NUR ---
EMERGENCY VEHICLE DISPATCHER CLOSING NOTES: PATIENT STABLE, V/S WNL, IN BED SLEEPING, SIDE RAILS UP X2, BED AT LOWEST POSITION, BRAKES LOCKED AND IN PLACE, CALL LIGHT WITHIN REACH. PATIENT ON NRB MASK AT 15L SATURATING AT 98%, A/O X1-2, NSR, PATIENT NPO, RUNNING D5 1/2 NS AT 75 ML/HR. WILL CONTINUE TO MONITOR AND ENDORSE TO DAY SHIFT NURSE AND IMPLEMENT NURSING INTERVENTIONS NECESSARY.
[2021-01-28 06:14] LABS: EOSINOPHILS % (AUTO) 0.1 % (0.0-6.0); HEMATOCRIT 30 % (39-51); HEMOGLOBIN 9.9 g/dL (13.5-17.5); LYMPHOCYTES # (AUTO) 0.2 K/uL (0.8-4.8); LYMPHOCYTES % (AUTO) 2.4 % (20.0-44.0); MEAN CORPUSCULAR HGB CONC 34 g/dl (31.0-36.0); MEAN CORPUSCULAR VOLUME 97 fL (80-96); MONOCYTES # (AUTO) 0.2 K/uL (0.1-1.30); MONOCYTES % (AUTO) 2.4 % (2.0-12.0); NEUTROPHILS # (AUTO) 9.5 K/uL (1.8-8.9); NEUTROPHILS % (AUTO) 95.1 % (43.0-81.0); PLATELET COUNT (AUTO) 189 K/uL (150-450); RED BLOOD CELL COUNT(AUTO) 3.05 MIL/uL (4.5-6.0)
[2021-01-28 07:14] LABS: CALCIUM, SERUM 9.1 mg/dL (8.5-10.1); CREATININE 1.3 mg/dL (0.6-1.3); MAGNESIUM 1.9 mg/dL (1.8-2.4); PHOSPHORUS 3.5 mg/dL (2.5-4.9)
[2021-01-28] MEDS ORDERED: LEVOFLOXACIN 500 MG /D5W 100ML 500 MG/100 ML PIGGYBACK IV SCH (09:00)
[2021-01-28] MEDS: PANTOPRAZOLE 40 MG VIAL IV SCH (09:02)
[2021-01-28] MEDS: ENOXAPARIN SODIUM 30 MG/0.3 ML DISP.SYRIN SQ SCH (09:04)
[2021-01-28] MEDS: HEPARIN SODIUM, PORCINE 5000 UNITS/1 ML VIAL SQ SCH ×2 (10:00→17:14)
[2021-01-28] MEDS ORDERED: CLINDAMYCIN IV RTU IN D5W 600 MG/50 ML PIGGYBACK IV ONE (10:00)
[2021-01-28] MEDS ORDERED: ACETAMINOPHEN 325 MG TABLET PO PRN (11:00)
[2021-01-28] MEDS ORDERED: HOME MED MISCELLANEOUS XX SCH (11:00)
[2021-01-28] MEDS ORDERED: BISACODYL SUPP (10 MG) 10 MG/SUPP.RECT SUPP.RECT RC PRN (11:00)
[2021-01-28] MEDS ORDERED: MAGNESIUM HYDROXIDE 30 ML UDC PO PRN (11:00)
[2021-01-28 11:13] LABS: THYROID STIMULATING HORMONE 1.663 uIU/mL (0.358-3.74)
[2021-01-28] MEDS: MEGESTROL ACETATE SUSP 400 MG/10 ML UDC PO SCH (11:44)
[2021-01-28] MEDS: LEVOFLOXACIN 250 MG /D5W 50 ML 250 MG in PREMIX 1 EA IV SCH (13:52)
[2021-01-28] MEDS: IV D5/0.45 NACL 1,000 ML IV PRN (14:29)
[2021-01-28 16:00] VITALS: BP 100/53
[2021-01-28] MEDS: ASPIRIN 81 MG TAB.CHEW PO SCH (17:13)
[2021-01-28] MEDS: MEMANTINE HCL 5 MG TABLET PO SCH (17:13)
[2021-01-28] MEDS: TIMOLOL MAL/DORZOLAM HCL OPHTH 10 ML BOTTLE EACHEYE SCH (17:14)
--- NOTE | 2021-01-28 19:30 | NUR ---
WAREHOUSE HAND OPENING NOTES: RECEIVED PATIENT FROM DAY SHIFT, PATIENT ASLEEP IN BED, A/O X2, R. AC #18 PATENT AND INTACT, RUNNING D5 1/2 NS AT 75 ML/HR, NC AT 5L, SATURATING 95%. BED AT LOWEST POSITION, BRAKES LOCKED AND IN PLACE, SIDE RAILS UP X2, CALL LIGHT WITHIN REACH, WILL CONTINUE TO MONITOR AND IMPLEMENT NURSING INTERVENTIONS NECESSARY.
[2021-01-28] MEDS: ATORVASTATIN 10 MG TABLET PO SCH (21:01)
[2021-01-28] MEDS: CLINDAMYCIN 600 MG in IV D5W 50 ML IV SCH (21:01)
[2021-01-28] MEDS: LATANOPROST EYE DROP 0.005% 2.5 ML BOTTLE EACHEYE SCH (21:01)
[2021-01-29] VITALS: BP 105/56
[2021-01-29] MEDS: BLOOD SUGAR DIAGNOSTIC 1 EACH STRIP IN SCH ×4 (00:39→18:09)
[2021-01-29] MEDS: CLINDAMYCIN 600 MG in IV D5W 50 ML IV SCH ×3 (05:02→20:06)
--- NOTE | 2021-01-29 06:17 | NUR ---
OFFICE WORKFORCE PLANNER CLOSING NOTES: PATIENT IN BED, RESTING, A/O X2, R. AC #18 PATENT AND INTACT, RUNNING D5 1/2 NS AT 75 ML/HR, NC AT 5L SATURATING AT 99%, NO SOB, NO DISTRESS NOTED, BED AT LOWEST POSITION, BRAKES LOCKED AND IN PLACE, SIDE RAILS UP X2, CALL LIGHT WITHIN REACH, WILL CONTINUE TO MONITOR AND IMPLEMENT NURSING INTERVENTIONS NEEDED. WILL ENDORSE TO DAY SHIFT NURSE.
[2021-01-29 06:43] LABS: CALCIUM, SERUM 9.3 mg/dL (8.5-10.1); POTASSIUM 3.2 mmol/L (3.5-5.1)
[2021-01-29 06:51] LABS: BASOPHILS % (AUTO) 0.1 % (0.0-2.0); EOSINOPHILS % (AUTO) 0.6 % (0.0-6.0); HEMATOCRIT 30 % (39-51); HEMOGLOBIN 9.9 g/dL (13.5-17.5); LYMPHOCYTES # (AUTO) 0.6 K/uL (0.8-4.8); LYMPHOCYTES % (AUTO) 5.6 % (20.0-44.0); MEAN CORPUSCULAR HGB CONC 33 g/dl (31.0-36.0); MEAN CORPUSCULAR VOLUME 96 fL (80-96); MONOCYTES # (AUTO) 0.2 K/uL (0.1-1.30); NEUTROPHILS # (AUTO) 9.3 K/uL (1.8-8.9); NEUTROPHILS % (AUTO) 91.7 % (43.0-81.0); PLATELET COUNT (AUTO) 186 K/uL (150-450); RED BLOOD CELL COUNT(AUTO) 3.11 MIL/uL (4.5-6.0); WHITE BLOOD COUNT (AUTO) 10.1 K/uL (4.3-11.0)
--- NOTE | 2021-01-29 07:33 | NUR ---
RN OPEN NOTES: PATIENT RECEIVED IN BED, RESTING, A/O X2, NO SIGN OF SOB OR DISTRESS AT THIS TIME BREATHING EVEN AND UNLABORED, OXYGEN AT 5L NC SATURATING AT 95%, PT HAS AN AC #18 PATENT AND INTACT, SAFETY MEASURES IN PLACE, BED ALARM ON AND IN LOWEST POSITION, LOCKED AND IN PLACE, SIDE RAILS UP X2, CALL LIGHT WITHIN REACH, WILL CONTINUE TO MONITOR
[2021-01-29 08:00] VITALS: BP 109/57
[2021-01-29] MEDS ORDERED: POTASSIUM CHLORIDE 20 MEQ POWDER PACKET PO ONE (08:00)
[2021-01-29] MEDS: CHOLECALCIFEROL 1,000 UNIT TABLET (VIT D3) PO SCH (09:36)
[2021-01-29] MEDS: MEGESTROL ACETATE SUSP 400 MG/10 ML UDC PO SCH (09:37)
[2021-01-29] MEDS: PANTOPRAZOLE 40 MG VIAL IV SCH (09:37)
[2021-01-29] MEDS: VITAMIN B COMP W-C 1 TAB TABLET PO SCH (09:37)
[2021-01-29] MEDS: POTASSIUM CHLORIDE 20 MEQ TAB.PRT.SR PO SCH ×2 (09:37→11:24)
[2021-01-29] MEDS: MEMANTINE HCL 5 MG TABLET PO SCH ×2 (09:37→16:51)
[2021-01-29] MEDS: HEPARIN SODIUM, PORCINE 5000 UNITS/1 ML VIAL SQ SCH ×2 (09:39→16:49)
[2021-01-29] MEDS: DOCUSATE SODIUM 100 MG CAPSULE PO SCH (09:40)
[2021-01-29] MEDS: TIMOLOL MAL/DORZOLAM HCL OPHTH 10 ML BOTTLE EACHEYE SCH ×2 (09:41→17:11)
--- NOTE | 2021-01-29 10:00 | NUR ---
RN NOTE RIGHT ANTECUBITAL IV INSERTED #22 G PATENT, INTACT AND FLUSHING WELL
--- NOTE | 2021-01-29 10:30 | NUR ---
RN NOTE PT TOLERATED MEDICINE WITH VANILLA PUDIN WELL, WILL CONTINUE TO ENCOURAGE PO INTAKE
[2021-01-29] MEDS: IV D5/0.45 NACL 1,000 ML IV PRN (10:35)
--- NOTE | 2021-01-29 12:00 | NUR ---
RN NOTES: PT DOES NOT WANT TO EAT MUCH TESTER EQUIPMENT DANE NOTIFIED SWALLOW EVALUATION DONE LOOSE PURE PER ST
[2021-01-29] MEDS ORDERED: BARIUM SULFATE 148 GM SUSP.RECON PO ONE (13:55)
[2021-01-29] MEDS ORDERED: BARIUM SULFATE 240 ML ORAL.SUSP PO ONE (13:55)
--- NOTE | 2021-01-29 14:00 | NUR ---
RN NOTE PT ABLE TO EAT ICE CREAM TOLERATED WELL MED CRUSHED
[2021-01-29] MEDS: INSULIN REGULAR, HUMAN 100 UNIT/ML 3 ML VIAL SQ PRN (14:08)
[2021-01-29] MEDS: ENOXAPARIN SODIUM 30 MG/0.3 ML DISP.SYRIN SQ SCH (14:14)
[2021-01-29] MEDS: SOD FERRIC GLUC 125 MG in IV NS 0.9% 100 ML IV SCH (15:32)
[2021-01-29 16:00] VITALS: BP 106/47
[2021-01-29] MEDS: ASPIRIN 81 MG TAB.CHEW PO SCH (17:16)
--- NOTE | 2021-01-29 19:00 | NUR ---
RN CLOSING NOTES: PATIENT REMAINS IN BED, RESTING, A/O X2, NO SIGN OF SOB OR DISTRESS AT THIS TIME BREATHING EVEN AND UNLABORED, OXYGEN AT 5L NC SATURATING AT 95%, PT HAS AN AC #22 PATENT AND INTACT RUNNING DS 1/2 75ML/HR, SAFETY MEASURES IN PLACE, BED ALARM ON AND IN LOWEST POSITION, LOCKED AND IN PLACE, SIDE RAILS UP X2, CALL LIGHT WITHIN REACH, WILL ENDORSE TO DIRECT SUPPORT SPECIALIST RN
[2021-01-29 20:00] VITALS: BP 104/65
--- NOTE | 2021-01-29 20:39 | NUR ---
Patient is alert to voice/name, light touch oriented x2. Aspiration precautions at all times HOB at 40. RAC IV #22G infusing D5 1/2NS at 75cc/hr. VSS. Denies pain at this time. No signs of SOB or distress. O2 sat 97% on 5L via NC. Bed alarm on, bed in lowest position, call light within reach. Addendum: 01/29/21 at 0477 by IVÁN MINAYA RN 45* HOB
[2021-01-29] MEDS: LATANOPROST EYE DROP 0.005% 2.5 ML BOTTLE EACHEYE SCH (21:08)
[2021-01-29] MEDS: ATORVASTATIN 10 MG TABLET PO SCH (21:08)
[2021-01-30] MEDS: BLOOD SUGAR DIAGNOSTIC 1 EACH STRIP IN SCH ×4 (01:10→17:49)
[2021-01-30 04:00] VITALS: BP 127/64
[2021-01-30] MEDS: IV D5/0.45 NACL 1,000 ML IV PRN ×2 (04:47→17:03)
[2021-01-30] MEDS: CLINDAMYCIN 600 MG in IV D5W 50 ML IV SCH ×3 (04:48→21:18)
--- NOTE | 2021-01-30 06:20 | NUR ---
Patient is alert and oriented x2, flat affect but cooperative and appreciative of staff providing care. Patient has poor appetite but able to very slowly eat applesauce as a snack with all aspiration precaution measures in place. No coughing, no episodes of SOB, no signs of distress. Turned q2h, kept clean and dry. Saturating in high 90s on O2 5L RAC #22G intact and patent D5 1/2 NS infusing at 75cc/hr. No s/s of hypo or hyperglycemic reactions noted. Tolerating IV ABX well no adverse reactions. All safety measures in place.
--- NOTE | 2021-01-30 07:59 | NUR ---
RN NOTE RECEIVED PT IN BED AWAKE AND ALERT ORIENTED TO NAME. DENIES ANY DISCOMFORT. LYING ON HIS RIGHT SIDE. ON 5LPM VIA NC TOLERATING WELL. IVF INFUSING WITHOUT DIFFICULTY. HOB AT 45DEG. ANGLE FOR ASPIRATION PRECAUTION. SAFETY MEASURES MAINTAINED. PLACED CALL LIGHT WITHIN REACH. WILL CONTINUE TO MONITOR.
[2021-01-30] MEDS: CHOLECALCIFEROL 1,000 UNIT TABLET (VIT D3) PO SCH (08:16)
[2021-01-30] MEDS: PANTOPRAZOLE 40 MG TABLET.DR PO SCH (08:16)
[2021-01-30] MEDS: DOCUSATE SODIUM 100 MG CAPSULE PO SCH (08:16)
[2021-01-30] MEDS: MEMANTINE HCL 5 MG TABLET PO SCH ×2 (08:17→16:54)
[2021-01-30] MEDS: HEPARIN SODIUM, PORCINE 5000 UNITS/1 ML VIAL SQ SCH ×2 (08:18→16:56)
[2021-01-30] MEDS: MEGESTROL ACETATE SUSP 400 MG/10 ML UDC PO SCH (08:19)
[2021-01-30] MEDS: VITAMIN B COMP W-C 1 TAB TABLET PO SCH (08:24)
[2021-01-30] MEDS: TIMOLOL MAL/DORZOLAM HCL OPHTH 10 ML BOTTLE EACHEYE SCH ×2 (10:05→16:54)
--- NOTE | 2021-01-30 10:05 | NUR ---
RN NOTE [facility] GTTS NOT ADMINISTERED. CALLED PHARMACY NOT DELIVERED YET.
[2021-01-30 11:34] LABS: BASOPHILS % (AUTO) 0.1 % (0.0-2.0); EOSINOPHILS % (AUTO) 2.2 % (0.0-6.0); HEMATOCRIT 34 % (39-51); HEMOGLOBIN 10.8 g/dL (13.5-17.5); LYMPHOCYTES # (AUTO) 0.7 K/uL (0.8-4.8); LYMPHOCYTES % (AUTO) 6.6 % (20.0-44.0); MEAN CORPUSCULAR HGB CONC 32 g/dl (31.0-36.0); MEAN CORPUSCULAR VOLUME 97 fL (80-96); MONOCYTES # (AUTO) 0.3 K/uL (0.1-1.30); MONOCYTES % (AUTO) 2.6 % (2.0-12.0); NEUTROPHILS # (AUTO) 9.8 K/uL (1.8-8.9); NEUTROPHILS % (AUTO) 88.5 % (43.0-81.0); PLATELET COUNT (AUTO) 204 K/uL (150-450); RED BLOOD CELL COUNT(AUTO) 3.46 MIL/uL (4.5-6.0); WHITE BLOOD COUNT (AUTO) 11.1 K/uL (4.3-11.0)
[2021-01-30 11:43] LABS: CALCIUM, SERUM 9.3 mg/dL (8.5-10.1); CREATININE 1.1 mg/dL (0.6-1.3); POTASSIUM 3.3 mmol/L (3.5-5.1)
[2021-01-30] MEDS: INSULIN REGULAR, HUMAN 100 UNIT/ML 3 ML VIAL SQ PRN ×2 (12:27→17:50)
[2021-01-30] MEDS ORDERED: POTASSIUM CHLORIDE 20 MEQ POWDER PACKET PO ONE (13:30)
[2021-01-30] MEDS: LEVOFLOXACIN 250 MG /D5W 50 ML 250 MG in PREMIX 1 EA IV SCH (14:01)
[2021-01-30] MEDS: SOD FERRIC GLUC 125 MG in IV NS 0.9% 100 ML IV SCH (14:33)
[2021-01-30] MEDS: ENOXAPARIN SODIUM 30 MG/0.3 ML DISP.SYRIN SQ SCH (14:37)
[2021-01-30] MEDS: ASPIRIN 81 MG TAB.CHEW PO SCH (17:02)
--- NOTE | 2021-01-30 18:47 | NUR ---
RN note PT IN BED. ASLEEP. EASIILY AROUSABLE.NO SOB. COMFORTABLE. ON O2 5LPM VIA NC TOLERATING WELL. HOB UP AT 40 DEGREES FOR ASPIRATION PRECAUTION. HAD BM X1. NEW IV PLACED ON LEFT WRIST G.24 WITH GOOD BLOOD RETURN. IVF REINFUSED @75 CC/HR. SAFETY MEASURES OBSERVED. CALL LIGHT WITHIN REACH.
--- NOTE | 2021-01-30 19:10 | NUR ---
RN NOTES RECEIVED REPORT FROM MORNING RN PATIENT A/O X2 . NOT IN DISTRESS. WITH IV ACCESS ON L ARM G#24 PATENT FLUSHES WELL. WITH ONGOING IV FLUIDS OF D5 1/2NS @75CC/HR TOLERATING WELL. WITH OXYGEN INHALATION AT 5LPM VIA NC TOLERATING WELL SATING AT 97%. VITAL SIGS TAKEN AND RECORDED. ALL SAFETY MEASURES IN PLACE AT ALL TIMES. HOB ELEVATED, CALL LIGHT WITHIN REACH. BED ON LOWEST POSITION AND LOCKED. WILL CONTINUE TO MONITOR THE PATIENT
[2021-01-30 21:00] VITALS: BP 146/71
[2021-01-30] MEDS: ATORVASTATIN 10 MG TABLET PO SCH (21:18)
[2021-01-30] MEDS: LATANOPROST EYE DROP 0.005% 2.5 ML BOTTLE EACHEYE SCH (21:19)
--- NOTE | 2021-01-30 23:45 | NUR ---
RN NOTES DR. AISHA LOCKHART INSERTED A MIDLINE AT R UPPER ARM TOLERATING WELL. NO REDNESS NO PAIN NOTED AT THIS TIME WILL CONTINUE TO MONITOR.
--- NOTE | 2021-01-31 | NUR ---
RN NOTES BS 120MG/DL. NO COVERAGE. WILL CONTINUE TO MONITOR PATIENT COMFORTABLE IN BED
[2021-01-31] MEDS: BLOOD SUGAR DIAGNOSTIC 1 EACH STRIP IN SCH ×4 (01:03→17:17)
[2021-01-31 05:00] VITALS: BP 126/57
[2021-01-31] MEDS: CLINDAMYCIN 600 MG in IV D5W 50 ML IV SCH ×3 (05:45→21:22)
--- NOTE | 2021-01-31 06:14 | NUR ---
RN NOTES BS 128 NO COVERAGE AT THIS TIME. PATIENT COMFORTABLE IN BED.
--- NOTE | 2021-01-31 07:10 | NUR ---
RN NOTES PATIENT REMAINS STABLE NO SIGNIFICANT CHANGES IN HEALTH CONDITION DURING THE SHIFT. ALL DUE MEDS GIVEN ORDERED. NO DESATURATION NO SOB NOT IN DISTRESS. ALL SAFETY MEASURES IN PLACE AT ALL TIMES. HOB ELEVATED. BED ON LOWEST POSITION AND LOCKED. CALL LIGHT WITHIN REACH. ENCOURAGE THE PATIENT TO EAT AND DRINK. ALL NEEDS ATTENDED. KEPT CLEAN DRY AT ALL TIMES. ENDORSED.
--- NOTE | 2021-01-31 07:20 | NUR ---
RN NOTE OBSERVED PATIENT ASLEEP, CAN BE EASILY WAKEN UP, ON NASAL CANULA @5LPM O2 SAT OF 98% BREATHING EVEN AND UNLABORED, ALERT AND ORIENTED X1 RESPONSE VERBALLY TO NAME, SACRAL AREA FOR WOUND CONSULT STILL PENDING, ON ASPIRATION PRECAUTION, HOB ELEVATED >30 DEGREES, RIGHT UPPER ARM MIDLINE PATENT INFUSING WELL RUNNING D5 1/2 NS @75 CC/HR, SAFETY MEASURES OBSERVED, CALL LIGHT WITHIN REACH, WILL CONTINUE TO MONITOR.
[2021-01-31] MEDS: MEMANTINE HCL 5 MG TABLET PO SCH ×2 (08:16→17:16)
[2021-01-31] MEDS: DOCUSATE SODIUM 100 MG CAPSULE PO SCH (08:16)
[2021-01-31] MEDS: MEGESTROL ACETATE SUSP 400 MG/10 ML UDC PO SCH (08:16)
[2021-01-31] MEDS: PANTOPRAZOLE 40 MG TABLET.DR PO SCH (08:16)
[2021-01-31] MEDS: CHOLECALCIFEROL 1,000 UNIT TABLET (VIT D3) PO SCH (08:16)
[2021-01-31] MEDS: VITAMIN B COMP W-C 1 TAB TABLET PO SCH (08:16)
[2021-01-31] MEDS: TIMOLOL MAL/DORZOLAM HCL OPHTH 10 ML BOTTLE EACHEYE SCH ×2 (08:18→17:24)
[2021-01-31 08:46] LABS: CALCIUM, SERUM 8.3 mg/dL (8.5-10.1); CREATININE 0.9 mg/dL (0.6-1.3); POTASSIUM 3.4 mmol/L (3.5-5.1)
[2021-01-31 08:49] LABS: BASOPHILS % (AUTO) 0.2 % (0.0-2.0); EOSINOPHILS % (AUTO) 2.4 % (0.0-6.0); HEMATOCRIT 29 % (39-51); HEMOGLOBIN 9.7 g/dL (13.5-17.5); LYMPHOCYTES # (AUTO) 0.8 K/uL (0.8-4.8); LYMPHOCYTES % (AUTO) 7.9 % (20.0-44.0); MEAN CORPUSCULAR HGB CONC 33 g/dl (31.0-36.0); MEAN CORPUSCULAR VOLUME 96 fL (80-96); MONOCYTES # (AUTO) 0.2 K/uL (0.1-1.30); MONOCYTES % (AUTO) 1.9 % (2.0-12.0); NEUTROPHILS # (AUTO) 8.7 K/uL (1.8-8.9); NEUTROPHILS % (AUTO) 87.6 % (43.0-81.0); PLATELET COUNT (AUTO) 178 K/uL (150-450); RED BLOOD CELL COUNT(AUTO) 3.03 MIL/uL (4.5-6.0)
[2021-01-31] MEDS: HEPARIN SODIUM, PORCINE 5000 UNITS/1 ML VIAL SQ SCH (09:09)
[2021-01-31] MEDS: POTASSIUM CL. PREMIX PERIPHER. 50 ML IV SCH ×2 (09:35→10:51)
[2021-01-31] MEDS: INSULIN REGULAR, HUMAN 100 UNIT/ML 3 ML VIAL SQ PRN (11:38)
--- NOTE | 2021-01-31 11:44 | NUR ---
RN NOTE BLOOD GLUCOSE LEVEL OF 66, NOTIFIED DR. DANE ROBBINS HOLD DISCHARGE TODAY DUE TO ACUTE HYPOGLYCEMIA, WILL CONTINUE TO MONITOR PATIENT.
[2021-01-31 13:06] VITALS: BP 104/52
--- NOTE | 2021-01-31 13:46 | NUR ---
RN NOTES PER DANE BA PT FOR HOSPICE EVALUATION , PACKAGE CRIMPER JAY NOTIFIED PER MD ORDER.
[2021-01-31] MEDS: IV D5/0.45 NACL 1,000 ML IV PRN (14:35)
[2021-01-31] MEDS: SOD FERRIC GLUC 125 MG in IV NS 0.9% 100 ML IV SCH (14:49)
[2021-01-31] MEDS: ENOXAPARIN SODIUM 30 MG/0.3 ML DISP.SYRIN SQ SCH (15:16)
--- NOTE | 2021-01-31 15:26 | NUR ---
RN NOTES PT HEPARIN 5000 U DISCONTINUE PER DANE BA, DUE TO PT HAS ORDER FOR ENOXAPARIN.
[2021-01-31 16:00] VITALS: BP 147/78
[2021-01-31] MEDS: ASPIRIN 81 MG TAB.CHEW PO SCH (17:16)
--- NOTE | 2021-01-31 17:22 | NUR ---
RN NOTE PATIENT SEEN AND EVALUATED BY HOSPICE NURSE PAT
--- NOTE | 2021-01-31 18:32 | NUR ---
RN NOTE OBSERVED PATIENT AWAKE, ON NASAL CANULA @5LPM O2 SAT OF 98% BREATHING EVEN AND UNLABORED, ALERT AND ORIENTED X1 RESPONSE VERBALLY TO NAME, SACRAL AREA FOR WOUND CONSULT STILL PENDING, ON ASPIRATION PRECAUTION, HOB ELEVATED >30 DEGREES, RIGHT UPPER ARM MIDLINE PATENT INFUSING WELL RUNNING D5 1/2 NS @75 CC/HR, POTASSIUM 3.4 REPLACED, PATIENT HOSPICE EVALUATION DONE. WOUND CARE DONE ORDERED,, SAFETY MEASURES OBSERVED, CALL LIGHT WITHIN REACH, WILL ENDORSE TO NOC SHIFT. Addendum: 01/31/21 at 1836 by DIONISIO BARRETO RN RN NOTE OBSERVED PATIENT AWAKE, ON NASAL CANULA @5LPM O2 SAT OF 98% BREATHING EVEN AND UNLABORED, ALERT AND ORIENTED X1 RESPONSE VERBALLY TO NAME, SACRAL AREA FOR WOUND CONSULT STILL PENDING, ON ASPIRATION PRECAUTION, HOB ELEVATED >30 DEGREES, RIGHT UPPER ARM MIDLINE PATENT INFUSING WELL RUNNING D5 1/2 NS @75 CC/HR, POTASSIUM 3.4 REPLACED, PATIENT HOSPICE EVALUATION DONE. WOUND CARE DONE ORDERED, PATIENT ON ANTICOAGULANT NO S/S BLEEDING NOTED DURING THE SHIFT SAFETY MEASURES OBSERVED, CALL LIGHT WITHIN REACH, WILL ENDORSE TO NOC SHIFT.
--- NOTE | 2021-01-31 19:52 | NUR ---
RN OPENING NOTES: RECEIVED RESIDENT IN BED SLEEPING, BUT AROUSABLE, ALERT AND VERBALLY RESPONSIVE. O2 SAT 93% W/ 5L/MIN VIA N/C. BREATHING EVEN AND UNLABORED. IV ACCESS ON RT UPPER MIDLINE W/ D5 1/2 NS @75CC/HR AND PATIENT TOLERATED WELL. NO FACIAL GRIMACING NOTED. NO ACUTE DISTRESS. PATIENT IS ON HOSPICE EVALUATION. ALL SAFETY MEASURES PROVIDED. BED IN LOW POSITION AND LOCKED. BOTH SIDE RAILS UP. PLACE CALL LIGHT WITH IN REACH. WILL CONTINUE TO MONITOR
[2021-01-31 20:00] VITALS: BP 153/74
[2021-01-31] MEDS: ATORVASTATIN 10 MG TABLET PO SCH (21:21)
[2021-01-31] MEDS: LATANOPROST EYE DROP 0.005% 2.5 ML BOTTLE EACHEYE SCH (21:25)
[2021-02-01] MEDS: BLOOD SUGAR DIAGNOSTIC 1 EACH STRIP IN SCH ×2 (00:42→05:55)
[2021-02-01] MEDS: INSULIN REGULAR, HUMAN 100 UNIT/ML 3 ML VIAL SQ PRN ×2 (00:43→05:57)
--- NOTE | 2021-02-01 00:43 | NUR ---
RN NOTES: BLOOD SUGAR 120. NO COVERAGE NEEDED. NO S/S OF HYPER/HYPOGLYCEMIA
[2021-02-01 04:00] VITALS: BP 139/41
[2021-02-01] MEDS: CLINDAMYCIN 600 MG in IV D5W 50 ML IV SCH (04:55)
--- NOTE | 2021-02-01 07:02 | NUR ---
RN CLOSING NOTES: RESIDENT ASLEEP IN BED, BUT AROUSABLE, ALERT AND VERBALLY RESPONSIVE. BREATHING EVEN AND UNLABORED. IV ACCESS ON RT UPPER ARM MIDLINE W/ D5 1/2 NS @75CC/HR AND PATIENT TOLERATED WELL. NO FACIAL GRIMACING. NO ACUTE DISTRESS. BLOOD SUGAR 77, NO COVERAGE NEEDED. NO S/S OF HYPER/HYPOGLYCEMIA. ALL SAFETY MEASURES PROVIDED. BED IN LOW POSITION AND LOCKED. BOTH SIDE RAILS UP. PLACE CALL LIGHT WITH IN REACH. WILL ENDORSE TO MORNING SHIFT NURSE.
[2021-02-01] MEDS: IV D5/0.45 NACL 1,000 ML IV PRN (07:16)
--- NOTE | 2021-02-01 08:11 | NUR ---
RN OPENING NOTES: RECEIVED RESIDENT IN BED SLEEPING, BUT AROUSABLE, ALERT AND VERBALLY RESPONSIVE. O2 SAT 93% W/ 5L/MIN VIA N/C. BREATHING EVEN AND UNLABORED. IV ACCESS ON RT UPPER MIDLINE W/ D5 1/2 NS @75CC/HR AND PATIENT TOLERATED WELL. NO FACIAL GRIMACING NOTED. NO ACUTE DISTRESS. PATIENT IS ON HOSPICE EVALUATION. ALL SAFETY MEASURES PROVIDED. BED IN LOWEST POSITION AND LOCKED. BOTH SIDE RAILS UP. PLACE CALL LIGHT WITH IN REACH. WILL CONTINUE TO MONITOR
[2021-02-01 08:59] VITALS: BP 137/69
--- NOTE | 2021-02-01 09:01 | NUR ---
RN NOTE PER [facility], PATIENT IS BEING ADMITTED UNDER THEIR CARE FOR HOSPICE.
== END 2021-02-01 09:55 | disposition hospice, home (50) | DRG 871 ==
LOC: ER 11:49 → TELE-TD 16:08 → TELE1 16:53 → MEDSG1 19:25
PROVIDERS: ADMIT Nurse Practitioner Acute Care; ATTEND Nurse Practitioner Acute Care
PROC: 05HB33Z Insertion of Infusion Device into Right Basilic Vein, Percutaneous Approach (ICD-10-PCS; principal; 2021-01-31)
DX: A41.9 Sepsis, unspecified organism (principal); J96.01 Acute respiratory failure with hypoxia; N17.0 Acute kidney failure with tubular necrosis; J69.0 Pneumonitis due to inhalation of food and vomit; E43 Unspecified severe protein-calorie malnutrition; J15.9 Unspecified bacterial pneumonia; J15.6 Pneumonia due to other Gram-negative bacteria; R64 Cachexia; Z68.1 Body mass index [BMI] 19.9 or less, adult; E87.0 Hyperosmolality and hypernatremia; E87.2 Acidosis; D72.819 Decreased white blood cell count, unspecified; Z20.822 Contact with and (suspected) exposure to COVID-19; F03.90 Unspecified dementia, unspecified severity, without behavioral disturbance, psychotic disturbance, mood disturbance, and anxiety; Z51.5 Encounter for palliative care; I10 Essential (primary) hypertension; Z66 Do not resuscitate; Z88.1 Allergy status to other antibiotic agents; Z88.0 Allergy status to penicillin; Z88.2 Allergy status to sulfonamides; Z79.84 Long term (current) use of oral hypoglycemic drugs; Z79.82 Long term (current) use of aspirin; Z79.899 Other long term (current) drug therapy; Y95 Nosocomial condition; R62.7 Adult failure to thrive; E86.0 Dehydration; E78.5 Hyperlipidemia, unspecified; F09 Unspecified mental disorder due to known physiological condition; R13.10 Dysphagia, unspecified; D50.9 Iron deficiency anemia, unspecified; D69.6 Thrombocytopenia, unspecified; E87.6 Hypokalemia; H40.9 Unspecified glaucoma
CPT/HCPCS: 36415; 71045-TC; 74230-TC; 80048-TC; 80076-TC; 81001; 82728-TC; 82962-TC; 83540-TC; 83605-TC; 83735-TC; 83880; 84100-TC; 84439-TC; 84443-TC; 84484-TC; 85025-TC; 85730-TC; 87040-TC; 87081-TC; 87086-TC; 92526; 92611-TC; A4216; A6253; A6403; C9113; C9803; G0378; J1644; J1650; J1815; J1956; J2916; J3480; J3490; J7030; J7050; J7060; U0003

== ENCOUNTER 2021-02-01 10:10 | Inpatient (IN) | payer OTHER ==
[~2021-02-01] VITALS: Ht 165.1 cm; Wt 41.8 kg
[~2021-02-01 10:10] MED LIST changes: +ACET-868 PO; +ASPI-1169 PO; +BISA10SU11 RC; +CHOL100062 PO; +CRAN425C6 PO; +DOCU-141 PO; +MAGN400O6 PO; +MEGE400O5 PO; -METF-440 PO; +VITA1TAB56 PO
[2021-02-01] MEDS ORDERED: IV D5/0.45 NACL 1,000 ML IV PRN (11:30)
[2021-02-01] MEDS ORDERED: LORAZEPAM INJ 2 MG/ML VIAL IV PRN (11:30)
[2021-02-01] MEDS ORDERED: ALBUTEROL SULFATE INH 18 GM HFA.AER.AD IH PRN (11:38)
[2021-02-01] MEDS ORDERED: ONDANSETRON HCL/PF 4 MG/2 ML VIAL IVP PRN (11:38)
--- NOTE | 2021-02-01 12:00 | NUR ---
RN NOTE PT UNDER COMFORT CARE, RN FROM [facility] CAME TO VISIT PT WILL CONTINUE TO MONITOR
[2021-02-01] MEDS ORDERED: ALBUTEROL FS 2.5 MG/0.5 ML VIAL.NEB NEB PRN (15:00)
[2021-02-01] MEDS ORDERED: ATROPINE SULFATE OPHTH SOLN 15 ML BOTTLE SL PRN (15:00)
[2021-02-01] MEDS ORDERED: ACETAMINOPHEN 650 MG/SUPP.RECT RC PRN (15:00)
[2021-02-01] MEDS ORDERED: ONDANSETRON 4 MG TAB.RAPDIS SL PRN (15:00)
[2021-02-01] MEDS ORDERED: IPRATROPIUM NEB FS 0.5 MG/2.5 ML AMPUL.NEB NEB PRN (15:00)
[2021-02-01] MEDS ORDERED: BISACODYL SUPP (10 MG) 10 MG/SUPP.RECT SUPP.RECT RC PRN (15:00)
[2021-02-01 16:00] VITALS: BP 156/83
--- NOTE | 2021-02-01 16:42 | NUR ---
RN NOTE CINDA TORRE FROM [facility] STOP IV FLUIDS, ORDER IS PLACE IN THE CHART
--- NOTE | 2021-02-01 18:25 | NUR ---
RN CLOSING NOTE PT ADMITTED TO [facility] FOR COMFORT MEASURES. NO SIGNIFICANT CHANGES DURING SHIFT. D/C IV FLUIDS PER HOSPICE/FAMILY. PT REMAINS IN BED, ALERT/ORIENTED X 2. NO SOB OR DISTRESS NOTED AT THIS TIME. ALL SAFETY MEASURES IN PLACE. CLEAN AND MADE COMFORTABLE. BED LOCKED AND IN LOWEST POSITION. CALL LIGHT WITHIN REACH. WILL ENDORSE TO GLASS SANDER NURSE.
--- NOTE | 2021-02-01 19:10 | NUR ---
RN NOTE PER [facility] CARE DC D5 02/28 NS @ 75 CC/HR.
--- NOTE | 2021-02-01 19:20 | NUR ---
RN OPENING NOTES RECEIVED CARE OF PATIENT WHILE PATIENT IS IN BED, A/O X2, NO SIGNS OF DISTRESS. PATIENT IS ON O2 THERAPY THROUGH NC AT 5L, NO SIGNS OF RESPIRATORY DISTRESS NOTED. KYUNG MIDLINE REMAINS INTACT WITH NO SIGNS OF INFILTRATION. COMFORT MEASURES IMPLEMENTED AT THIS TIME, REPOSITIONED, PROVIDED HEATED BLANKET. WILL CONTINUE TO IMPLEMENT COMFORT MEASURES AND WILL CONTINUE TO MONITOR FOR ANY CHANGES THROUGHOUT THE SHIFT.
[2021-02-02] VITALS: BP 122/78
--- NOTE | 2021-02-02 06:54 | NUR ---
RN CLOSING NOTES PATIENT REMAINS A/O X2, NO SIGNIFICANT CHANGES THROUGHOUT THE SHIFT, NO SIGNS OF DISTRESS NOTED. PATIENT REMAINS ON O2 THERAPY THROUGH NC AT 5L, NO SIGNS OF RESPIRATORY DISTRESS NOTED. KYUNG MIDLINE REMAINS INTACT WITH NO SIGNS OF INFILTRATION. COMFORT MEASURES TAKEN THROUGHOUT THE SHIFT. REPOSITIONED, PROVIDED HEATED BLANKET, PROVIDED THERAPEUTIC COMMUNICATION. WILL CONTINUE TO IMPLEMENT COMFORT MEASURES AND WILL ENDORSE TO DAYSVTFT NURSE FOR LYNDON.
--- NOTE | 2021-02-02 07:58 | NUR ---
WELT DRAWER OPENING NOTE RECEIVED PATIENT FROM NIGHT NURSE. PATIENT SLEEPING IN BED, RESPONDED TO NAME WHEN CALLED A/O X 1 , NO COMPLAINTS OF SOB, ON 5L NC. HAS KYUNG MIDLINE 18G. NO COMPLAINTS OF PAIN AT THIS TIME. SAFETY MEASURES IN PLACE, BED IN LOWEST POSITION, SIDE RAILS UP X 2, CALL LIGHT WITHIN REACH.
[2021-02-02 08:00] VITALS: BP 100/52
[2021-02-02] MEDS: PANTOPRAZOLE 40 MG VIAL IV SCH (08:05)
--- NOTE | 2021-02-02 09:00 | NUR ---
RN NOTE [facility] CALLED FOR UPDATE ON PATIENT, NO NEW CHANGES REGARDING PATIENT STATUS.
--- NOTE | 2021-02-02 11:22 | NUR ---
RN NOTE RECEIVED CALL FROM ALLEN, DAUGHTER AND SON, FAMILY WAS ABLE TO TALK TO PATIENT FOR A COUPLE OF MINUTES. NO CHANGES AT THE MOMENT.
--- NOTE | 2021-02-02 11:52 | NUR ---
RN NOTE SPOKE WITH DIRECTOR OF PATIENT CARE SERVICES FROM [facility] TERI GAITAN, PATIENT HAD A BETH HUGGER IN PLACE AND WAS ASKED TO REMOVE IT. BETH HUGGER WAS REMOVED.
[2021-02-02 16:00] VITALS: BP 108/65
--- NOTE | 2021-02-02 18:00 | NUR ---
RN NOTE [facility] LIFE SCIENCES INSTRUCTOR CALLED FOR STATUS REPORT ON PATIENT. NO CHANGES
--- NOTE | 2021-02-02 18:46 | NUR ---
PAINTING CONTRACTOR CLOSING NOTE PATIENT SLEEPING IN BED, WITH NO COMPLAINTS OF SOB, ON 5L NC WITH 02 SAT OF > 95%. HAS KYUNG MIDLINE 18G, INTACT SL. NO COMPLAINTS OF PAIN AT THIS TIME. NO SIGNIFICANT CHANGES DURINGSHIFT. PATIENT KEPT COMFOPRTABLE, SAFETY MEASURES IN PLACE, BED IN LOWEST POSITION, SIDE RAILS UP X 2, CALL LIGHT WITHIN REACH.
[2021-02-02] MEDS: MORPHINE SULFATE INJ 2 MG/ML DISP.SYRIN IV PRN (19:30)
--- NOTE | 2021-02-02 19:40 | NUR ---
RN NOTE PT RECEIVED IN BED RESTING. PT IS ON 5L OF 02 VIA NC SHOWING NO S/S OF RESP DISTRESS. BREATHING EVEN AND UNLABORED. PT IS ALERT AND ORIENTED X1-2. RIGHT UPPER ARM MIDLINE NOTED. LINE FLUSHED, PATENT, AND INTACT WITH NO SIGNS OF INFILTRATION. PT WAS COMPLAINING OF PAIN /. MORPHINE ADMINISTERED @ 1930. ALL SAFETY MEASURES IMPLEMENTED. BED ALARM ON. BED LOCKED AND IN LOWEST POSITION. SIDE RAILS UP. WILL CONTINUE TO MONITOR AND ASSESS FOR ANY CHANGES DURING SHIFT.
[2021-02-02 20:00] VITALS: BP 159/78
--- NOTE | 2021-02-03 01:05 | NUR ---
RN NOTE PT IN BED RESTING COMFORTABLY. NO COMPLAINTS OF PAIN AT THIS TIME. WILL CONTINUE TO MONITOR AND ASSESS FOR ANY CHANGES DURING SHIFT.
[2021-02-03 04:00] VITALS: BP 143/72
--- NOTE | 2021-02-03 06:30 | NUR ---
RN NOTE REPORT GIVEN TO TIFFANY THOMPSON FOR LYNDON.
--- NOTE | 2021-02-03 06:48 | NUR ---
MS CHEMICAL DEPENDENCY PROFESSIONAL NOTE: RECEIVED REPORT FROM TIFFANY ROSAS YOLI. PATIENT WAS UNDER CARE OF HOSPICE SERVICES THEN SENT TO [facility] PER FAMILY WISHES. COMFORT MEASURES ONLY. PATIENT DX FTT, NO PEG PLACEMENT AND FAMILY REFUSES PEG PLACEMENT. TRANSFERRED TO MED SUR[facility] VIA BED ACCOMPANIED BY TWO ESCORTS. ANY CHANGES OF CONDITION NOTIFY [facility] .
[2021-02-03 06:50] VITALS: BP 146/78
--- NOTE | 2021-02-03 07:10 | NUR ---
RN OPENING NOTE RECEIVED PATIENT IN BED. A/O X1-2. ADMITTED FOR COMFORT MEASURES ONLY. ON 02 AT 5 LPM VIA NC, NO SOB NOTED. IN NO APPARENT DISTRESS. IV ACCESS ON KYUNG MIDLINE AND L HAND #24 G, BOTH ARE INTACT AND PATENT. SAFETY MEASURES MAINTAINED. BED IN LOWEST POSITION, BRAKES LOCKED. SIDE RAILS UP X2. CALL LIGHT WITHIN REACH. WILL CONTINUE PLAN OF CARE.
[2021-02-03 08:00] VITALS: BP 164/91
[2021-02-03] MEDS: PANTOPRAZOLE 40 MG VIAL IV SCH (08:40)
--- NOTE | 2021-02-03 12:50 | NUR ---
RN NOTE DR ROD ORDERED PUREE DIET TOLERATED. ORDER READ BACK AND CARRIED OUT.
[2021-02-03 16:00] VITALS: BP 145/85
--- NOTE | 2021-02-03 18:03 | NUR ---
RN CLOSING NOTE PATIENT RESTING IN BED. A/O X1-2. ON 02 AT 5 LPM VIA NC, NO SOB NOTED. NO S/S OF RESPIRATORY DISTRESS. IV ACCESS ON KYUNG MIDLINE AND L HAND #24 G, BOTH ARE INTACT AND PATENT. DUE MED GIVEN ORDERED. SAFETY MEASURES MAINTAINED. BED IN LOWEST POSITION, BRAKES LOCKED. SIDE RAILS UP X2. KEPT CALL LIGHT WITHIN REACH. PROVIDED COMFORT MEASURES. WILL ENDORSE CONTINUITY OF CARE TO ONCOMING SHIFT.
--- NOTE | 2021-02-03 19:30 | NUR ---
RN OPENING NOTE RECEIVED PT IN BED EYES CLOSED, EASILY AROUSABLE. A/O X1-2. ON 02 AT 5 LPM VIA NC, NO SOB NOTED. NO S/S OF RESPIRATORY DISTRESS AT THIS TIME. IV ACCESS KYUNG MIDLINE AND L HAND #24 G, INTACT AND PATENT. SAFETY PRECAUTIONS IN PLACE. BED IN LOWEST LOCKED POSITION, HOB ELEVATED, SIDE RAILS UP X2, AND CALL LIGHT AND TABLE WITHIN REACH. WILL CONTINUE TO MONITOR.
[2021-02-03 20:00] VITALS: BP 128/85
--- NOTE | 2021-02-04 06:41 | NUR ---
RN CLOSING NOTE PT IN BED EYES CLOSED, EASILY AROUSABLE. A/O X1-2. ON 02 AT 5 LPM VIA NC, NO SOB NOTED. NO S/S OF RESPIRATORY DISTRESS AT THIS TIME. IV ACCESS KYUNG MIDLINE AND L HAND #24 G, INTACT AND PATENT. ALL NEEDS MET AT THIS TIME. SAFETY PRECAUTIONS IN PLACE AT ALL TIMES. BED IN LOWEST LOCKED POSITION, HOB ELEVATED, SIDE RAILS UP X2, AND CALL LIGHT AND TABLE WITHIN REACH. WILL ENDORSE TO ONCOMING NURSE FOR LYNDON.
--- NOTE | 2021-02-04 07:30 | NUR ---
RN OPENING NOTES RECEIVED PATIENT ON CANDY, AWAKE AND A/O X1-2. ON O2 AT 5LPM VIA NASAL CANNULA SATURATING AT 98%. NO SOB NOTED. NOT IN DISTRESS. WITH NO COMPLAINTS OF PAIN OR DISCOMFORT AT THIS TIME. WITH IV ACCESS AT RIGHT UPPER MIDLINE AND AT LEFT HAND G24, BOTH SALINE LOCKED, PATENT AND INTACT. COMFORT AND SAFETY MEASURES IN PLACED. CALL LIGHT WITHIN REACH. BED ON LOWEST AND LOCKED POSITION, SIDE RAILS UP X2. WILL CONTINUE TO MONITOR.
[2021-02-04 08:00] VITALS: BP 130/77
[2021-02-04] MEDS: PANTOPRAZOLE 40 MG VIAL IV SCH (08:31)
[2021-02-04 16:00] VITALS: BP 142/80
--- NOTE | 2021-02-04 18:39 | NUR ---
RN CLOSING NOTES PATIENT ON BED, AWAKE AND A/O X1-2. ON O2 AT 5LPM VIA NASAL CANNULA SATURATING AT 100%. NO SOB NOTED. NOT IN DISTRESS. WITH NO COMPLAINTS OF PAIN OR DISCOMFORT AT THIS TIME. WITH IV ACCESS AT RIGHT UPPER MIDLINE AND AT LEFT HAND G24, BOTH SALINE LOCKED, PATENT AND INTACT. DUE MEDS GIVEN. COMFORT AND SAFETY MEASURES IN PLACED. CALL LIGHT WITHIN REACH. BED ON LOWEST AND LOCKED POSITION, SIDE RAILS UP X2. WILL ENDORSE TO NEXT SHIFT FOR LYNDON.
--- NOTE | 2021-02-04 19:00 | NUR ---
MS RN OPENING NOTE RECEIVED PT AWAKE IN BED. A/OX 1-2. PT IS STABLE ON 5L OXYGEN VIA NASAL CANNULA. NO SOB NOTED. NO S/S RESPIRATORY DISTRESS. PT IS BEDREST. PT HAS NO C/O PAIN AT THIS TIME. IV ACCESS IN RIGHT UPPER ARM MIDLINE SL, LEFT HAND G #24. IV IS INTACT, PATENT, AND FLUSHING WELL. SAFETY MEASURES MAINTAINED . BED IN LOWEST LOCKED POSITION, HOB ELEVATED, SIDE RAILS UP X2. CALL LIGHT AND TABLE WITHIN REACH. WILL CONTINUE WITH PLAN OF CARE.
[2021-02-04 20:00] VITALS: BP 161/87
--- NOTE | 2021-02-04 21:30 | NUR ---
BP RECHECKED BP 153/93 HR 99
[2021-02-04] MEDS: MORPHINE SULFATE INJ 2 MG/ML DISP.SYRIN IV PRN (22:46)
--- NOTE | 2021-02-04 22:46 | NUR ---
PT UNABLE TO ASSESS. BP 153/93. PT IRRITABLE TO TOUCH, FACIAL GRIMACING AND MOANING. PER NURSING ASSESSMENT , MORPHINE 2MG/1ML IV Q4HR PRN ADMINISTERED AT THIS TIME PER ORDER. WILL CONTINUE TO MONITOR.
--- NOTE | 2021-02-05 06:36 | NUR ---
MS RN CLOSING NOTE PT RESTING COMFORTABLY IN BED AT THIS TIME, EASY TO AROUSE. STABLE ON 5L OXYGEN VIA NASAL CANNULA. PT REMAINED STABLE THROUGHOUT SHIFT. ALL NEEDS, MEDICATIONS, AND CARE ADMINISTERED ANTICIPATED PER ORDER; PAIN CONTROL ADMINISTERED PER ORDER. PT REPOSITIONED Q2HR AND PRN. SAFETY PRECAUTIONS IN PLACE AND MAINTAINED AT ALL TIMES. BED IN LOWEST LOCKED POSITION, HOB ELEVATED, SIDE RAILS UP X2. CALL LIGHT AND TABLE WITHIN REACH. WILL ENDORSE TO MORNING SHIFT NURSE FOR LYNDON.
[2021-02-05 08:30] VITALS: BP 84/40
[2021-02-05] MEDS: PANTOPRAZOLE 40 MG VIAL IV SCH (09:00)
--- NOTE | 2021-02-05 09:40 | NUR ---
m/s soaker meat: notes starla (rn) from [facility] at bedside assessing the pt. verify with her if pt still needs the protonix ivp and says she will talk to the doctor and have it discontinued later.
--- NOTE | 2021-02-05 12:00 | NUR ---
hospice care water and gas helper: notes kept comfortable. pt remains alert to self only. reality orientation provided prn. resp. even and unlabored. no apparent distress noted. will continue to monitor.
--- NOTE | 2021-02-05 15:00 | NUR ---
m/s splicer machine operator: notes in bed with eyes close, no s/s of resp. distress noted. kept comfortable. will continue to monitor.
[2021-02-05 16:05] VITALS: BP 130/76
--- NOTE | 2021-02-05 18:50 | NUR ---
hospice care general utility maintenance repairer: notes pt remains stable. resp. even and unlabored. needs attended. will continue to monitor.
--- NOTE | 2021-02-05 19:10 | NUR ---
hospice care peoplesoft hcm consultant: notes bedside report given to megan (rn) for continuity of care.
--- NOTE | 2021-02-05 19:47 | NUR ---
MS RN OPENING NOTES: RECEIVED PATIENT SLEEP IN BED, AROUSABLETO STIMULI, BED IN LOW POSITION CALL LIGHTS WITHIN REACH, NO COMPLAIN OF PAIN AND DISCOMFORT AT THIS TIME,PATIENT ON HOSPICE KEPT COMFORTABLE, WITH IV LINE AT L HAND #24 AND KYUNG MIDLINE SL. PATIENT ON 02 INHALATION AT 4LPM NO SOB WAS OBSERVED, PATIENT KEPT CLEAN AND DRY,ALL NEEDS MET, WILL CONTINUE TO MONITOR
[2021-02-05 20:00] VITALS: BP 155/79
--- NOTE | 2021-02-06 07:43 | NUR ---
RN CLOSING NOTES: PATIENT SLEEP IN BED COMFORTABLY, BED IN LOW POSITION,CALL LIGHTS WITHIN REACH, NO COMPLAIN OF PAIN AND DISCOMFORT AT THIS TIME, PATIENT ON HOSPICE COMFORT CARE, ON O2 INHALATION AT 4LPM NO RESP DISTRESS WAS OBSERVED, PATIENT KEPT CLEAN AND DRY, ALL NEEDS MET ENDORSE TO INCOMING SHIFT.
--- NOTE | 2021-02-06 07:46 | NUR ---
RN OPENING NOTES PATIENT IS IN BED RESTING, AWAKE. A/O X1. NO S/S OF PAIN NOTES AT THIS TIME. ON 5L OXYGEN VIA NC, NO DISTRESS OR SHORTNESS OF BREATH NOTED. IV KYUNG MIDLINE, L HAND #24G INTACT AND PATENT. FALL AND SAFETY MEASURES IN PLACE, BED ALARM ON, BED IN LOW AND LOCK POSITION, CALL LIGHT AND TABLE WITHIN EASY REACH, SIDE RAILS UP X2. WILL CONTINUE TO MONITOR.
[2021-02-06 08:00] VITALS: BP 137/73
[2021-02-06] MEDS: PANTOPRAZOLE 40 MG VIAL IV SCH (09:55)
[2021-02-06] MEDS: MORPHINE SULFATE INJ 2 MG/ML DISP.SYRIN IV PRN (11:35)
[2021-02-06 16:00] VITALS: BP 139/81
--- NOTE | 2021-02-06 19:18 | NUR ---
RN CLOSING NOTES PATIENT IS IN BED RESTING, AWAKE. A/O X1. NO S/S OF PAIN NOTES AT THIS TIME. ON 5L OXYGEN VIA NC, NO DISTRESS OR SHORTNESS OF BREATH NOTED. IV KYUNG MIDLINE, L HAND #24G INTACT AND PATENT. FALL AND SAFETY MEASURES IN PLACE, BED ALARM ON, BED IN LOW AND LOCK POSITION, CALL LIGHT AND TABLE WITHIN EASY REACH, SIDE RAILS UP X2. WILL ENDORSE TO RAILROAD DISPATCHER.
--- NOTE | 2021-02-06 19:20 | NUR ---
RN OPENING NOTES RECEIVED PATIENT RESTING IN BED. A/O X1. PATIENT WITH REGULAR AND UNLABORED BREATHING ON 5LPM VIA NASAL CANULA, TOLERATED WELL. NO SIGNS AND SYMPTOMS OF DISTRESS NOTED. NO COMPLAIN OF PAIN OR DISCOMFORT NOTED AT THIS TIME. IV ACCESS KYUNG MIDLINE SL AND L HAND G#20 SL. ACCESS PATENT AND INTACT. SAFETY PRECAUTIONS ENFORCED WITH BED LOCKED AND AT LOWEST POSITION. SIDERAILS UP. CALL LIGHT WITHIN REACH AT ALL TIMES WILL CONTINUE TO MONITOR PATIENT.
[2021-02-06 20:00] VITALS: BP 142/72
--- NOTE | 2021-02-07 06:59 | NUR ---
RN CLOSING NOTES PATIENT STILL RESTING IN BED. A/O X1. PATIENT WITH REGULAR AND UNLABORED BREATHING ON 5LPM VIA NASAL CANULA, TOLERATED WELL. NO SIGNS AND SYMPTOMS OF DISTRESS NOTED. NO COMPLAIN OF PAIN OR DISCOMFORT NOTED AT THIS TIME. IV ACCESS KYUNG MIDLINE SL AND L HAND G#20 SL. ACCESS PATENT AND INTACT. SAFETY PRECAUTIONS ENFORCED WITH BED LOCKED AND AT LOWEST POSITION. SIDERAILS UP. CALL LIGHT WITHIN REACH AT ALL TIMES WILL ENDORSE CONTINUITY OF CARE TO DAY SHIFT NURSE.
--- NOTE | 2021-02-07 07:35 | NUR ---
RN OPENING NOTES RECEIVED PATIENT IN BED. A/O X1, IN NO ACUTE DISTRESS NOTED, BREATHING EVEN AND UNLABORED, ON 5LPM VIA NASAL CANULA, TOLERATED WELL. NO COMPLAIN OF PAIN OR DISCOMFORT NOTED AT THIS TIME. IV ACCESS KYUNG MIDLINE SL AND L HAND G#20 SL. ACCESS PATENT AND INTACT. SAFETY PRECAUTIONS IN PLACE, BED LOCKED AND AT LOWEST POSITION. SIDE RAILS UP, CALL LIGHT WITHIN REACH AT ALL TIMES. WILL CONTINUE TO MONITOR PATIENT ACCORDINGLY.
[2021-02-07 08:00] VITALS: BP 129/68
[2021-02-07] MEDS: PANTOPRAZOLE 40 MG VIAL IV SCH (08:41)
--- NOTE | 2021-02-07 18:38 | NUR ---
RN CLOSING NOTES PATIENT IN BED. A/O X1, IN NO ACUTE DISTRESS NOTED, BREATHING EVEN AND UNLABORED, ON 3LPM VIA NASAL CANULA, TOLERATING WELL. NO COMPLAINTS OF PAIN OR DISCOMFORT NOTED AT THIS TIME. IV ACCESS KYUNG MIDLINE SL AND L HAND G#20 SL. ACCESS PATENT AND INTACT. SAFETY PRECAUTIONS IN PLACE, BED LOCKED AND AT LOWEST POSITION. SIDE RAILS UP, CALL LIGHT WITHIN REACH AT ALL TIMES. DUE MEDS GIVEN S ORDERED. ALL NEEDS ATTENDED AND MET. WILL ENDORSED TO ONCOMING SHIFT FOR LYNDON.
--- NOTE | 2021-02-07 19:42 | NUR ---
RN OPENING NOTES RECEIVED PATIENT RESTING IN BED. A/O X1. PATIENT WITH REGULAR AND UNLABORED BREATHING ON 1LPM VIA NASAL CANULA, TOLERATED WELL. NO SIGNS AND SYMPTOMS OF DISTRESS NOTED. NO COMPLAIN OF PAIN OR DISCOMFORT NOTED AT THIS TIME. IV ACCESS KYUNG MIDLINE SL AND L HAND G#20 SL. ACCESS PATENT AND INTACT. SAFETY PRECAUTIONS ENFORCED WITH BED LOCKED AND AT LOWEST POSITION. SIDERAILS UP. CALL LIGHT WITHIN REACH AT ALL TIMES WILL CONTINUE TO MONITOR PATIENT.
[2021-02-07 20:00] VITALS: BP 131/71
--- NOTE | 2021-02-08 06:54 | NUR ---
RN CLOSING NOTES PATIENT STILL RESTING IN BED. A/O X1. PATIENT WITH REGULAR AND UNLABORED BREATHING ON 1LPM VIA NASAL CANULA, TOLERATED WELL. NO SIGNS AND SYMPTOMS OF DISTRESS NOTED. NO COMPLAIN OF PAIN OR DISCOMFORT NOTED AT THIS TIME. IV ACCESS KYUNG MIDLINE SL AND L HAND G#20 SL. ACCESS PATENT AND INTACT. SAFETY PRECAUTIONS ENFORCED WITH BED LOCKED AND AT LOWEST POSITION. SIDERAILS UP. CALL LIGHT WITHIN REACH AT ALL TIMES WILL ENDORSE CONTINUITY OF CARE TO DAY SHIFT NURSE.
--- NOTE | 2021-02-08 07:40 | NUR ---
RN OPENING NOTES PATIENT IS IN BED RESTING, SLEEPING. A/O X1. NO S/S OF PAIN NOTES AT THIS TIME. ON 3L OXYGEN VIA NC, NO DISTRESS OR SHORTNESS OF BREATH NOTED. IV KYUNG MIDLINE, L HAND #24G INTACT AND PATENT. FALL AND SAFETY MEASURES IN PLACE, BED ALARM ON, BED IN LOW AND LOCK POSITION, CALL LIGHT AND TABLE WITHIN EASY REACH, SIDE RAILS UP X2. WILL CONTINUE TO MONITOR.
[2021-02-08] MEDS: PANTOPRAZOLE 40 MG VIAL IV SCH (09:44)
--- NOTE | 2021-02-08 19:58 | NUR ---
RN CLOSING NOTES PATIENT IS IN BED RESTING, AWAKE. A/O X1. NO S/S OF PAIN NOTES AT THIS TIME. ON 3L OXYGEN VIA NC, NO DISTRESS OR SHORTNESS OF BREATH NOTED. IV KYUNG MIDLINE, L HAND #24G INTACT AND PATENT. FALL AND SAFETY MEASURES IN PLACE, BED ALARM ON, BED IN LOW AND LOCK POSITION, CALL LIGHT AND TABLE WITHIN EASY REACH, SIDE RAILS UP X2. 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
[2021-02-08 20:00] VITALS: BP 140/79
[2021-02-09 08:00] VITALS: BP 167/99
[2021-02-09] MEDS: PANTOPRAZOLE 40 MG VIAL IV SCH (09:11)
--- NOTE | 2021-02-09 15:47 | NUR ---
PATIENT REMOVED IV ON L HAND #24G. PATIENT ONLY IV ACCESS IS ON KYUNG MIDLINE.
[2021-02-09 16:00] VITALS: BP 144/81
--- NOTE | 2021-02-09 18:46 | NUR ---
RN CLOSING NOTES PATIENT IS IN BED RESTING, AWAKE. A/O X1. NO S/S OF PAIN NOTES AT THIS TIME. ON 3L OXYGEN VIA NC, NO DISTRESS OR SHORTNESS OF BREATH NOTED. IV KYUNG MIDLINE, INTACT AND PATENT. FALL AND SAFETY MEASURES IN PLACE, BED ALARM ON, BED IN LOW AND LOCK POSITION, CALL LIGHT AND TABLE WITHIN EASY REACH, SIDE RAILS UP X2. 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
--- NOTE | 2021-02-09 20:00 | NUR ---
SHIPPING AND RECEIVING SPECIALIST NOTE PATIENT BROUGHT DOWN AT THIS TIME BY EMT VIA GURNEY IN STABLE CONDITION. PATIENT A/OX1-2. NOT EXHIBITING ANY APPARENT DISTRESS ON ROOM AIR. DENIES PAIN. PATIENT DISCHARGE FOLDER/PAPER WORKS GIVEN TO EMT, SIGNED BY 2 RN'S-- PATIENT UNABLE TO SIGN BECAUSE OF CONDITION. R.UA MIDLINE KEPT IN PLACE PER CHARGE NURSE JEANNETTE-- ENDORSED TO ME BY NICK, MORNING SHIFT RN. ID BAND REMOVED. PATIENT HAS NO BELONGINGS NOTED IN FILE AND NOTHING IN THE ROOM WELL-- HENCE PATIENT LEFT WITH HOSPITAL [facility].
== END 2021-02-09 20:00 | DRG 640 ==
LOC: HOSPICE1 10:10 → HOSPICE 02-03 06:42
PROVIDERS: ADMIT Nurse Practitioner Acute Care; ATTEND Internal Medicine
DX: R62.7 Adult failure to thrive (principal); E43 Unspecified severe protein-calorie malnutrition; D68.59 Other primary thrombophilia; R64 Cachexia; Z68.1 Body mass index [BMI] 19.9 or less, adult; Z51.5 Encounter for palliative care; F03.90 Unspecified dementia, unspecified severity, without behavioral disturbance, psychotic disturbance, mood disturbance, and anxiety; I10 Essential (primary) hypertension; E78.5 Hyperlipidemia, unspecified; Z66 Do not resuscitate; Z74.09 Other reduced mobility; R13.10 Dysphagia, unspecified; E86.0 Dehydration; E11.9 Type 2 diabetes mellitus without complications
CPT/HCPCS: C9113; G0378; J2270; J3490